=== PATIENT | female | born 1950 | race Two or more races ===

== ENCOUNTER 2017-05-23 10:49 | Emergency (ER) | payer MEDICARE, MEDICAID ==
[~2017-05-23] VITALS: Ht 134.6 cm; Wt 54.4 kg
[~2017-05-23 10:49] MED LIST: MEC25T PO; PHEN100C70 PO; PHENYTOIN SOD EXT; PREDNISONE 20 MG TABLET; SERT-275; SERT-275 PO; VALA500T33
[2017-05-23] MEDS ORDERED: SODIUM CHLORIDE 0.9% 1,000 ML IV ONE (12:15)
[2017-05-23] MEDS ORDERED: ONDANSETRON HCL 4 MG/2 ML VIAL IV ONE (12:15)
[2017-05-23 12:39] LABS: Basophils # (auto) 0 uL; Basophils % (auto) 0.3 % (0.0-2.0); Eosinophils # (auto) 0 uL; Eosinophils % (auto) 0.4 % (0.0-7.0); Hematocrit 36.9 % (36.0-46.0); Lymphocytes % (auto) 15.9 % (10.0-50.0); Mean Corpuscular Hgb Conc. 32.6 g/dL (32.0-36.0); Mean Corpuscular Volume 79.5 fL (80.0-100.0); Mean Platelet Volume 7.3 fL (6.9-10.8); Monocytes # (auto) 0.4 uL; Monocytes % (auto) 6.2 % (0.0-12.0); Neutrophils # (auto) 4.8 uL; Neutrophils % (auto) 77.2 % (37.0-80.0); Platelet Count (auto) 281 10^3/uL (140-450); Red Cell Distribution Width 15.6 % (11.8-14.3); White Blood Cell 6.2 10^3/uL (4.4-10.8)
[2017-05-23 13:02] LABS: Albumin 3.7 g/dL (3.4-5.0); Anion Gap 7 (5-15); Blood Urea Nitrogen 10 mg/dL (7-18); Calcium 8.5 mg/dL (8.5-10.1); Carbon Dioxide 26 mmol/L (21-32); Chloride 97 mmol/L (98-107); GFR African American 158 mL/min; GFR Non-African American 130 mL/min; Glucose 109 mg/dL (74-106); Potassium 3.6 mmol/L (3.5-5.1); Sodium 130 mmol/L (136-145)
[2017-05-23 13:07] LABS: Alkaline Phosphatase 138 U/L (45-117); Aspartate Aminotransferase 15 U/L (15-37); Bilirubin, Total 0.2 mg/dL (0.2-1.0); Total Protein 8.2 g/dL (6.4-8.2)
[2017-05-23 14:13] LABS: Urine Bilirubin Negative (Negative); Urine Blood Negative /uL (Negative); Urine Color Yellow (Yellow); Urine Glucose Normal (Normal); Urine Ketone 1+ (Negative); Urine Nitrite Negative (Negative); Urine RBC 1 /hpf (0 - 4); Urine Urobilinogen Normal (Negative)
[2017-05-23 14:32] VITALS: BP 128/75
== END 2017-05-23 14:57 | disposition home or self-care (01) ==
LOC: ER 10:49
DX: R11.10 Vomiting, unspecified (principal); Z83.3 Family history of diabetes mellitus
CPT/HCPCS: 36415; 74176; 80053; 81001; 84484; 85025; 93005; 96361; 96374; 99285; J2405; J7030

== ENCOUNTER 2017-08-05 15:34 | Inpatient (IN) | payer MEDICARE, MEDICAID ==
[~2017-08-05] VITALS: Ht 152.4 cm; Wt 55.9 kg
[2017-08-06 02:45] LABS: Urine Bacteria NONE SEEN /hpf (None Seen); Urine Blood Negative /uL (Negative); Urine Specific Gravity 1.013 (1.001-1.035); Urine WBC 1 /hpf (0 - 5)
[2017-08-06 03:15] LABS: BUN/Creatinine Ratio 18.2; Calcium 9.2 mg/dL (8.5-10.1); Potassium 4.4 mmol/L (3.5-5.1)
[2017-08-06 03:18] LABS: Bilirubin, Total 0.3 mg/dL (0.2-1.0)
[2017-08-06 03:27] LABS: Eosinophils # (auto) 0 uL; Hemoglobin 11.7 g/dL (12.2-16.2); Monocytes # (auto) 0.6 uL; Neutrophils # (auto) 3.8 uL
[2017-08-06 03:29] LABS: Basophils # (auto) 0 uL; Basophils % (auto) 0.4 % (0.0-2.0); Eosinophils % (auto) 0.3 % (0.0-7.0); Hematocrit 34.9 % (36.0-46.0); Lymphocytes # (auto) 1.5 uL; Lymphocytes % (auto) 25.8 % (10.0-50.0); Mean Corpuscular Hemoglobin 26.4 pg (28.0-32.0); Mean Corpuscular Hgb Conc. 33.6 g/dL (32.0-36.0); Mean Corpuscular Volume 78.6 fL (80.0-100.0); Neutrophils % (auto) 63.5 % (37.0-80.0); Nucleated Red Blood Cells % 0.3 %; Platelet Count (auto) 277 10^3/uL (140-450); Red Blood Cells 4.43 10^6/uL (4.0-5.20); Red Cell Distribution Width 16.1 % (11.8-14.3)
[2017-08-06] MEDS ORDERED: MAGNESIUM CITRATE SOLUTION 300 ML BTL PO ONE (04:00)
[2017-08-06] MEDS ORDERED: MORPHINE SULFATE 4 MG/ML SYR/VIAL IV PRN (06:15)
[2017-08-06] MEDS ORDERED: NITROGLYCERIN 0.4 MG SL TAB SL PRN (06:15)
[2017-08-06] MEDS ORDERED: HYDROcodone-ACET 5/325MG TAB PO PRN (06:45)
[2017-08-06] MEDS ORDERED: ONDANSETRON HCL 4 MG/2 ML VIAL IV PRN (06:45)
[2017-08-06] MEDS ORDERED: LORazepam 2MG/ML-1ML VIAL IV PRN (06:45)
[2017-08-06] MEDS ORDERED: ACETAMINOPHEN 500 MG TAB PO PRN (06:45)
[2017-08-06 08:15] LABS: BUN/Creatinine Ratio 13.5; Calcium 9.6 mg/dL (8.5-10.1); Potassium 4.4 mmol/L (3.5-5.1)
[2017-08-06] MEDS: LEVOTHYROXINE SODIUM 50 MCG TAB PO SCH (08:35)
[2017-08-06] MEDS: LACTULOSE 20Gm/30ML SOLN PO SCH (09:57)
[2017-08-06] MEDS: DOCUSATE SOD 100 MG CAP PO SCH ×2 (09:57→22:38)
[2017-08-06] MEDS: PHENYTOIN SODIUM 100 MG CAP PO SCH ×2 (09:57→22:38)
[2017-08-06] MEDS: SODIUM CHLORIDE 0.9% 1,000 ML IV SCH (17:13)
[2017-08-06 22:00] VITALS: BP 103/67
[2017-08-07 05:00] VITALS: BP 107/61
[2017-08-07 05:38] LABS: Basophils # (auto) 0 uL; Eosinophils # (auto) 0 uL; Eosinophils % (auto) 0.4 % (0.0-7.0); Hemoglobin 11.4 g/dL (12.2-16.2); Monocytes # (auto) 0.6 uL
[2017-08-07 05:41] LABS: Basophils % (auto) 0.4 % (0.0-2.0); Hematocrit 33.4 % (36.0-46.0); Lymphocytes # (auto) 1.1 uL; Lymphocytes % (auto) 24.7 % (10.0-50.0); Mean Corpuscular Hgb Conc. 34.1 g/dL (32.0-36.0); Mean Corpuscular Volume 79.2 fL (80.0-100.0); Monocytes % (auto) 13.7 % (0.0-12.0); Neutrophils # (auto) 2.7 uL; Neutrophils % (auto) 60.8 % (37.0-80.0); Nucleated Red Blood Cells % 0.5 %; Platelet Count (auto) 247 10^3/uL (140-450); Red Blood Cells 4.22 10^6/uL (4.0-5.20); Red Cell Distribution Width 16.1 % (11.8-14.3); White Blood Cell 4.4 10^3/uL (4.4-10.8)
[2017-08-07 05:57] LABS: Calcium 8.7 mg/dL (8.5-10.1); Magnesium 2.6 mg/dL (1.6-2.6); Potassium 3.9 mmol/L (3.5-5.1)
[2017-08-07] MEDS: LEVOTHYROXINE SODIUM 50 MCG TAB PO SCH (06:07)
[2017-08-07] MEDS: SODIUM CHLORIDE 0.9% 1,000 ML IV SCH (06:08)
[2017-08-07] MEDS ORDERED: LEVO50TA7 PO (07:45)
[2017-08-07] MEDS ORDERED: ESLI1TAB4 PO (07:45)
[2017-08-07] MEDS ORDERED: CHOL100083 OR (07:45)
[2017-08-07 09:00] VITALS: BP 117/60
[2017-08-07] MEDS: DOCUSATE SOD 100 MG CAP PO SCH (10:00)
[2017-08-07] MEDS: LACTULOSE 20Gm/30ML SOLN PO SCH (10:00)
[2017-08-07] MEDS: PHENYTOIN SODIUM 100 MG CAP PO SCH (10:26)
[2017-08-07] MEDS ORDERED: DOCU-94 PO (11:01)
[2017-08-07 13:37] VITALS: BP 117/60
[2017-08-07 13:55] VITALS: BP 117/60
== END 2017-08-07 16:30 | disposition home or self-care (01) | DRG 254 ==
LOC: ER 15:35 → TELE 15:36 → TELE-CENTR 08-06 18:38 → CENTRAL 08-07 05:21
PROVIDERS: ADMIT Nurse Practitioner Family; ATTEND Internal Medicine
DX: K59.00 Constipation, unspecified (principal); E87.1 Hypo-osmolality and hyponatremia; E03.9 Hypothyroidism, unspecified; G40.909 Epilepsy, unspecified, not intractable, without status epilepticus; M19.90 Unspecified osteoarthritis, unspecified site; I73.9 Peripheral vascular disease, unspecified; K62.3 Rectal prolapse; Z83.3 Family history of diabetes mellitus
CPT/HCPCS: 36415; 70450; 71046; 80048; 80053; 81001; 83735; 84443; 84484; 85025; 87086; 93005; 96360; 97163

== ENCOUNTER 2017-10-20 18:07 | Emergency (ER) | payer MEDICARE, MEDICAID ==
[~2017-10-20] VITALS: Ht 147.3 cm; Wt 54.4 kg
[~2017-10-20 18:07] MED LIST changes: +DOCU-94 PO; +LEVO50TA7 PO; -MEC25T PO; +PHE100C PO; -PHEN100C70 PO; -PHENYTOIN SOD EXT; -PREDNISONE 20 MG TABLET; -SERT-275; -SERT-275 PO; -VALA500T33
[2017-10-20 19:17] LABS: Basophils # (auto) 0 uL; Basophils % (auto) 0.3 % (0.0-2.0); Eosinophils # (auto) 0.1 uL; Hemoglobin 12.1 g/dL (12.2-16.2); Lymphocytes # (auto) 2.2 uL; Lymphocytes % (auto) 36.6 % (10.0-50.0); Mean Corpuscular Hemoglobin 27.1 pg (28.0-32.0); Mean Corpuscular Hgb Conc. 32.8 g/dL (32.0-36.0); Mean Corpuscular Volume 82.8 fL (80.0-100.0); Monocytes # (auto) 0.5 uL; Monocytes % (auto) 8.1 % (0.0-12.0); Neutrophils # (auto) 3.2 uL; Nucleated Red Blood Cells % 0.1 %; Platelet Count (auto) 262 10^3/uL (140-450); Red Blood Cells 4.47 10^6/uL (4.0-5.20); Red Cell Distribution Width 17.1 % (11.8-14.3); White Blood Cell 5.9 10^3/uL (4.4-10.8)
[2017-10-20 19:37] LABS: Alanine Aminotransferase 21 U/L (13-56); Albumin 3.7 g/dL (3.4-5.0); Alkaline Phosphatase 161 U/L (45-117); Anion Gap 8 (5-15); Aspartate Aminotransferase 15 U/L (15-37); BUN/Creatinine Ratio 23.8; Bilirubin, Total < 0.1 mg/dL (0.2-1.0); Blood Urea Nitrogen 15 mg/dL (7-18); Calcium 8.9 mg/dL (8.5-10.1); Carbon Dioxide 27 mmol/L (21-32); Chloride 106 mmol/L (98-107); GFR African American 121 mL/min; GFR Non-African American 100 mL/min; Glucose 87 mg/dL (74-106); Magnesium 2.3 mg/dL (1.6-2.6); Potassium 4.2 mmol/L (3.5-5.1); Sodium 141 mmol/L (136-145); Total Protein 8.2 g/dL (6.4-8.2)
[2017-10-20 20:35] VITALS: BP 148/77
== END 2017-10-20 22:42 | disposition home or self-care (01) ==
LOC: EDBD → ER 18:07
DX: R07.89 Other chest pain (principal); R51 Headache; Z86.718 Personal history of other venous thrombosis and embolism
CPT/HCPCS: 36415; 70450; 71046; 80053; 83735; 84484; 85025; 85379; 93005

== ENCOUNTER 2017-11-01 15:20 | Emergency (ER) | payer MEDICARE, MEDICAID ==
[~2017-11-01] VITALS: Ht 154.9 cm; Wt 49.4 kg
[2017-11-01 17:10] VITALS: BP 121/51
== END 2017-11-01 17:51 | disposition home or self-care (01) ==
LOC: ER 15:20
DX: J20.9 Acute bronchitis, unspecified (principal); F17.210 Nicotine dependence, cigarettes, uncomplicated
CPT/HCPCS: 71046

== ENCOUNTER → 2020-02-28 | Outpatient (CLI) | payer MEDICARE, MEDICAID, BC ==
[~2020-02-28] MED LIST changes: -DOCU-94 PO; +LEV50T PO; +RIV20T PO; +RIVA20TA PO
== END | disposition home or self-care (01) ==
LOC: XY 16:15
PROVIDERS: ATTEND Student in an Organized Health Care Education/Training Program
DX: I73.9 Peripheral vascular disease, unspecified (principal); M79.605 Pain in left leg; M79.604 Pain in right leg
CPT/HCPCS: 93925

== ENCOUNTER → 2020-04-12 | Outpatient (CLI) | payer MEDICARE, MEDICAID, BC | END | disposition home or self-care (01) | LOC: XYW 10:31 | PROVIDERS: ATTEND Student in an Organized Health Care Education/Training Program | DX: I07.1 Rheumatic tricuspid insufficiency (principal); R07.9 Chest pain, unspecified | CPT/HCPCS: 93306 ==

== ENCOUNTER → 2021-03-14 | Emergency (ER) | payer MEDICARE, MEDICAID ==
[~2021-03-14] VITALS: Ht 147.3 cm; Wt 49.6 kg
[~2021-03-14] MED LIST changes: +CEPH-322 PO; +CEPHALEXIN 250 MG CAP PO SCH
[2021-03-15] LABS: Albumin 3.9 g/dL (3.4-5.0); Calcium 8.8 mg/dL (8.5-10.1); Potassium 4.5 mmol/L (3.5-5.1)
[2021-03-15 00:02] LABS: BUN/Creatinine Ratio 30.6
[2021-03-15 00:04] LABS: Bilirubin, Total 0.3 mg/dL (0.2-1.0); Total Protein 8.4 g/dL (6.4-8.2)
[2021-03-15 00:55] LABS: Basophils # (auto) 0 10 ^3/uL (0-0.2); Basophils % (auto) 0.2 % (0.0-2.0); Eosinophils # (auto) 0 10 ^3/uL (0-0.8); Hematocrit 36.5 % (36.0-46.0); Hemoglobin 12.4 g/dL (12.2-16.2); Lymphocytes # (auto) 0.7 10 ^3/uL (0.4-5.4); Lymphocytes % (auto) 13.7 % (10.0-50.0); Mean Corpuscular Hemoglobin 29.6 pg (28.0-32.0); Mean Corpuscular Hgb Conc. 34.1 g/dL (32.0-36.0); Mean Corpuscular Volume 86.8 fL (80.0-100.0); Monocytes # (auto) 0.2 10 ^3/uL (0-1.3); Monocytes % (auto) 4.6 % (0.0-12.0); Neutrophils # (auto) 4.3 10 ^3/uL (1.6-8.6); Neutrophils % (auto) 81.5 % (37.0-80.0); Red Cell Distribution Width 14.9 % (11.8-14.3); White Blood Cell 5.3 10^3/uL (4.4-10.8)
[2021-03-15 01:35] LABS: Urine Bacteria NONE SEEN /hpf (None Seen); Urine Blood 1+ /uL (Negative); Urine Mucus FEW (None Seen); Urine Specific Gravity 1.026 (1.001-1.035); Urine WBC 3 /hpf (0 - 5)
[2021-03-15 06:13] VITALS: BP 114/63
== END | disposition home or self-care (01) ==
LOC: ER 21:29
DX: N39.0 Urinary tract infection, site not specified (principal); I10 Essential (primary) hypertension
CPT/HCPCS: 36415; 80053; 81001; 83690; 85007; 85025; 85027

== ENCOUNTER 2021-06-26 11:19 | Emergency (ER) | payer MEDICARE, MEDICAID ==
[~2021-06-26] VITALS: Ht 149.9 cm; Wt 60.1 kg
[~2021-06-26 11:19] MED LIST changes: -CEPHALEXIN 250 MG CAP PO SCH
[2021-06-26] MEDS ORDERED: AZIT1POW PO (16:25)
[2021-06-26] MEDS ORDERED: METH4PAK PO (16:25)
[2021-06-26 17:45] VITALS: BP 136/70
== END 2021-06-26 17:20 | disposition home or self-care (01) ==
LOC: ER 11:19
DX: U07.1 COVID-19 (principal); J12.82 Pneumonia due to coronavirus disease 2019; I10 Essential (primary) hypertension; Z79.2 Long term (current) use of antibiotics; Z79.899 Other long term (current) drug therapy
CPT/HCPCS: 36415; 71046; 87426

== ENCOUNTER 2021-08-05 15:18 | Emergency (ER) | payer MEDICARE, MEDICAID ==
[~2021-08-05] VITALS: Ht 149.9 cm; Wt 59.0 kg
[~2021-08-05 15:18] MED LIST changes: +AZIT1POW PO; +METH4PAK PO
[2021-08-05] MEDS ORDERED: SODIUM CHLORIDE 0.9% 1,000 ML IV ONE (16:00)
[2021-08-05 16:29] LABS: Basophils # (auto) 0.1 10 ^3/uL (0-0.2); Basophils % (auto) 1.3 % (0.0-2.0); Eosinophils # (auto) 0.1 10 ^3/uL (0-0.8); Eosinophils % (auto) 1.2 % (0.0-7.0); Hematocrit 35.8 % (36.0-46.0); Hemoglobin 12.2 g/dL (12.2-16.2); Lymphocytes % (auto) 47.2 % (10.0-50.0); Mean Corpuscular Hemoglobin 29.1 pg (28.0-32.0); Mean Corpuscular Hgb Conc. 34.2 g/dL (32.0-36.0); Mean Corpuscular Volume 85.2 fL (80.0-100.0); Monocytes # (auto) 0.4 10 ^3/uL (0-1.3); Monocytes % (auto) 10.2 % (0.0-12.0); Neutrophils # (auto) 1.7 10 ^3/uL (1.6-8.6); Neutrophils % (auto) 40.1 % (37.0-80.0); Nucleated Red Blood Cells % 0.5 %; Red Cell Distribution Width 15.2 % (11.8-14.3); White Blood Cell 4.2 10^3/uL (4.4-10.8)
[2021-08-05 16:44] LABS: INR 1.1 (0.9-1.15)
[2021-08-05 16:47] LABS: Albumin 3.8 g/dL (3.4-5.0); BUN/Creatinine Ratio 25.8; Calcium 8.7 mg/dL (8.5-10.1); Magnesium 2.6 mg/dL (1.6-2.6); Potassium 4.1 mmol/L (3.5-5.1)
[2021-08-05 16:50] LABS: Bilirubin, Total 0.2 mg/dL (0.2-1.0); Total Protein 7.9 g/dL (6.4-8.2)
[2021-08-05 17:46] LABS: Urine Bacteria NONE SEEN /hpf (None Seen); Urine Blood TRACE /uL (Negative); Urine Mucus FEW (None Seen); Urine Specific Gravity 1.024 (1.001-1.035); Urine WBC 2 /hpf (0 - 5)
[2021-08-05 18:00] VITALS: BP 128/70
== END 2021-08-05 18:31 | disposition home or self-care (01) ==
LOC: ER 15:18
DX: R06.02 Shortness of breath (principal); N39.0 Urinary tract infection, site not specified; R42 Dizziness and giddiness; M13.0 Polyarthritis, unspecified; I10 Essential (primary) hypertension; Z87.01 Personal history of pneumonia (recurrent)
CPT/HCPCS: 36415; 71046; 80053; 80185; 81001; 83735; 84443; 85025; 85610; 85730; 93005; 96360; 99285; J7030

== ENCOUNTER 2022-01-16 17:31 | Emergency (ER) | payer MEDICARE, MEDICAID ==
[~2022-01-16] VITALS: Ht 149.9 cm; Wt 57.0 kg
[2022-01-16 20:36] VITALS: BP 156/78
[2022-01-17] MEDS ORDERED: MELO7.5T9 PO (09:26)
[2022-01-17] MEDS ORDERED: KETO2CRE4 TOP (09:26)
== END 2022-01-16 21:24 | disposition left against medical advice (07) ==
LOC: ER 17:31
DX: M79.662 Pain in left lower leg (principal); M79.661 Pain in right lower leg; Z53.21 Procedure and treatment not carried out due to patient leaving prior to being seen by health care provider

== ENCOUNTER 2022-01-17 07:01 | Emergency (ER) | payer MEDICARE, MEDICAID ==
[~2022-01-17] VITALS: Ht 152.4 cm; Wt 51.3 kg
[2022-01-17 07:26] VITALS: BP 127/89
[2022-01-17] MEDS ORDERED: MELO7.5T9 PO (09:26)
[2022-01-17] MEDS ORDERED: KETO2CRE4 TOP (09:26)
== END 2022-01-17 09:38 | disposition home or self-care (01) ==
LOC: ER 07:01
DX: B35.3 Tinea pedis (principal); M23.91 Unspecified internal derangement of right knee; I10 Essential (primary) hypertension; E03.9 Hypothyroidism, unspecified; Z79.899 Other long term (current) drug therapy; Z79.2 Long term (current) use of antibiotics
CPT/HCPCS: 73562

== ENCOUNTER 2022-05-07 13:41 | Inpatient (IN) | payer MEDICARE, MEDICAID ==
[~2022-05-07] VITALS: Ht 121.9 cm; Wt 51.8 kg
[~2022-05-07 13:41] MED LIST changes: +KETO2CRE4 TOP; +MELO7.5T9 PO
[2022-05-07 15:45] LABS: Basophils # (auto) 0 10 ^3/uL (0-0.2); Basophils % (auto) 0.4 % (0.0-2.0); Eosinophils # (auto) 0 10 ^3/uL (0-0.8); Hematocrit 38.3 % (36.0-46.0); Hemoglobin 12.8 g/dL (12.2-16.2); Lymphocytes # (auto) 1.8 10 ^3/uL (0.4-5.4); Lymphocytes % (auto) 38.7 % (10.0-50.0); Mean Corpuscular Hemoglobin 28.6 pg (28.0-32.0); Mean Corpuscular Hgb Conc. 33.4 g/dL (32.0-36.0); Mean Corpuscular Volume 85.7 fL (80.0-100.0); Monocytes # (auto) 0.5 10 ^3/uL (0-1.3); Monocytes % (auto) 10.3 % (0.0-12.0); Neutrophils # (auto) 2.3 10 ^3/uL (1.6-8.6); Neutrophils % (auto) 49.6 % (37.0-80.0); Nucleated Red Blood Cells % 0.2 %; Red Blood Cells 4.47 10^6/uL (4.0-5.20); Red Cell Distribution Width 14.5 % (11.8-14.3); White Blood Cell 4.7 10^3/uL (4.4-10.8)
[2022-05-07 16:06] LABS: BUN/Creatinine Ratio 23.1; Calcium 9.3 mg/dL (8.5-10.1); Magnesium 2.2 mg/dL (1.6-2.6); Potassium 3.8 mmol/L (3.5-5.1)
[2022-05-07 16:09] LABS: Bilirubin, Total 0.2 mg/dL (0.2-1.0)
[2022-05-07] MEDS ORDERED: NITROGLYCERIN 0.4 MG SL TAB SL PRN (21:45)
[2022-05-07] MEDS ORDERED: MORPHINE SULFATE INJ 2 MG/ml SYRG IV PRN (21:45)
[2022-05-07] MEDS ORDERED: PANTOPRAZOLE 40 MG TAB PO ONE (21:45)
[2022-05-07] MEDS ORDERED: SODIUM CHLORIDE 0.9% 1,000 ML IV SCH (21:45)
[2022-05-07 22:06] LABS: Cholesterol 203 mg/dL (< 200)
[2022-05-07 22:11] LABS: HDL Cholesterol 90 mg/dL (40-59); LDL Cholesterol 104 mg/dL (< 100); Triglycerides 72 mg/dL (< 150)
[2022-05-08 03:52] LABS: Basophils # (auto) 0 10 ^3/uL (0-0.2); Basophils % (auto) 0.4 % (0.0-2.0); Eosinophils # (auto) 0.1 10 ^3/uL (0-0.8); Eosinophils % (auto) 1.7 % (0.0-7.0); Hemoglobin 12.2 g/dL (12.2-16.2); Lymphocytes # (auto) 1.8 10 ^3/uL (0.4-5.4); Lymphocytes % (auto) 41.4 % (10.0-50.0); Mean Corpuscular Hemoglobin 28.4 pg (28.0-32.0); Mean Corpuscular Volume 86.2 fL (80.0-100.0); Monocytes # (auto) 0.4 10 ^3/uL (0-1.3); Monocytes % (auto) 9.9 % (0.0-12.0); Neutrophils % (auto) 46.6 % (37.0-80.0); Red Blood Cells 4.29 10^6/uL (4.0-5.20); Red Cell Distribution Width 14.7 % (11.8-14.3); White Blood Cell 4.4 10^3/uL (4.4-10.8)
[2022-05-08 04:12] LABS: Albumin 3.6 g/dL (3.4-5.0); Calcium 9.2 mg/dL (8.5-10.1)
[2022-05-08 04:15] LABS: Bilirubin, Total 0.3 mg/dL (0.2-1.0)
[2022-05-08] MEDS ORDERED: ENOXAPARIN SOD 40 MG/0.4 ML SYRINGE SC SCH (10:00)
[2022-05-08] MEDS ORDERED: PANTOPRAZOLE 40 MG TAB PO SCH (10:00)
[2022-05-08] MEDS ORDERED: ATOR10TA52 PO (14:19)
[2022-05-08 16:51] LABS: Urine Specific Gravity 1.009 (1.001-1.035)
[2022-05-08 16:52] LABS: Urine Blood Negative /uL (Negative)
[2022-05-08 17:00] VITALS: BP 133/52
[2022-05-08 20:00] VITALS: BP 120/56
[2022-05-08 22:00] VITALS: BP 120/56
[2022-05-08] MEDS ORDERED: METOPROLOL TARTRATE 25 MG TAB PO SCH (22:00)
[2022-05-08] MEDS: ACETAMINOPHEN 325 MG TAB PO PRN (22:15)
[2022-05-09 05:22] VITALS: BP 110/38
[2022-05-09] MEDS: LEVOTHYROXINE SODIUM 50 MCG TAB PO SCH ×2 (06:24→09:27)
[2022-05-09 08:05] VITALS: BP 120/56
[2022-05-09 09:01] VITALS: BP 123/57
[2022-05-09] MEDS: PHENYTOIN SODIUM 100 MG CAP PO SCH ×2 (12:43→21:58)
[2022-05-09] MEDS: METOPROLOL TARTRATE 25 MG TAB PO SCH ×2 (12:47→22:00)
[2022-05-09 13:00] VITALS: BP 122/61
[2022-05-09 17:00] VITALS: BP 110/58
[2022-05-09] MEDS: RIVAROXABAN 20 MG TAB PO SCH (17:13)
[2022-05-09 22:00] VITALS: BP 103/52
[2022-05-09] MEDS: ATORVASTATIN 20 MG TAB PO SCH (22:00)
[2022-05-10 05:29] VITALS: BP 105/46
[2022-05-10] MEDS ORDERED: ADENOSINE 44 MG in GIVE UN-DILUTED 0 ML IV ONE (07:45)
[2022-05-10 08:00] VITALS: BP 116/55
[2022-05-10] MEDS: PHENYTOIN SODIUM 100 MG CAP PO SCH ×2 (09:39→21:40)
[2022-05-10] MEDS: METOPROLOL TARTRATE 25 MG TAB PO SCH ×2 (09:40→21:44)
[2022-05-10] MEDS: ACETAMINOPHEN 325 MG TAB PO PRN (12:19)
[2022-05-10 13:00] VITALS: BP 95/48
[2022-05-10 17:00] VITALS: BP 96/43
[2022-05-10] MEDS: RIVAROXABAN 20 MG TAB PO SCH (17:40)
[2022-05-10] MEDS: ATORVASTATIN 20 MG TAB PO SCH (21:39)
[2022-05-10 22:00] VITALS: BP_SYST 100; BP_SYST 112; BP_DIAS 48; BP_DIAS 74
[2022-05-11 05:00] VITALS: BP 106/53
[2022-05-11] MEDS: LEVOTHYROXINE SODIUM 50 MCG TAB PO SCH (06:33)
[2022-05-11 08:00] VITALS: BP 114/55
[2022-05-11 09:00] VITALS: BP 114/55
[2022-05-11] MEDS: METOPROLOL TARTRATE 25 MG TAB PO SCH ×2 (10:33→22:32)
[2022-05-11] MEDS: PHENYTOIN SODIUM 100 MG CAP PO SCH ×2 (10:34→22:29)
[2022-05-11 13:00] VITALS: BP 121/61
[2022-05-11 17:00] VITALS: BP 115/59
[2022-05-11] MEDS: RIVAROXABAN 20 MG TAB PO SCH (18:09)
[2022-05-11 22:00] VITALS: BP 109/43
[2022-05-11] MEDS: ATORVASTATIN 20 MG TAB PO SCH (22:29)
[2022-05-12] MEDS: LEVOTHYROXINE SODIUM 50 MCG TAB PO SCH (06:43)
[2022-05-12 08:00] VITALS: BP 158/75
[2022-05-12] MEDS: METOPROLOL TARTRATE 25 MG TAB PO SCH ×2 (08:59→22:07)
[2022-05-12] MEDS: PHENYTOIN SODIUM 100 MG CAP PO SCH ×2 (08:59→22:06)
[2022-05-12 12:00] VITALS: BP 105/49
[2022-05-12 16:00] VITALS: BP 128/60
[2022-05-12] MEDS: RIVAROXABAN 20 MG TAB PO SCH (18:11)
[2022-05-12] MEDS ORDERED: LORazepam 2MG/ML-1ML VIAL IV PRN (20:00)
[2022-05-12 22:00] VITALS: BP 105/61
[2022-05-12] MEDS: ATORVASTATIN 20 MG TAB PO SCH (22:06)
[2022-05-13 05:00] VITALS: BP 121/47
[2022-05-13] MEDS: LEVOTHYROXINE SODIUM 50 MCG TAB PO SCH (06:45)
[2022-05-13] MEDS: PHENYTOIN SODIUM 100 MG CAP PO SCH ×2 (06:45→22:07)
[2022-05-13 07:58] VITALS: BP 107/62
[2022-05-13] MEDS: METOPROLOL TARTRATE 25 MG TAB PO SCH ×2 (08:55→22:08)
[2022-05-13 09:00] VITALS: BP 105/52
[2022-05-13 12:59] VITALS: BP 110/51
[2022-05-13] MEDS: ENOXAPARIN SOD 40 MG/0.4 ML SYRINGE SC SCH (15:58)
[2022-05-13 16:57] VITALS: BP 137/56
[2022-05-13 22:00] VITALS: BP 105/54
[2022-05-13] MEDS: ATORVASTATIN 20 MG TAB PO SCH (22:07)
[2022-05-14] VITALS (8 sets, daily range): BP systolic 97–128; BP diastolic 46–65
[2022-05-14 06:19] LABS: Basophils # (auto) 0 10 ^3/uL (0-0.2); Basophils % (auto) 0.4 % (0.0-2.0); Eosinophils # (auto) 0.1 10 ^3/uL (0-0.8); Eosinophils % (auto) 2.2 % (0.0-7.0); Hematocrit 36.8 % (36.0-46.0); Hemoglobin 12.2 g/dL (12.2-16.2); Lymphocytes # (auto) 1.6 10 ^3/uL (0.4-5.4); Lymphocytes % (auto) 43.3 % (10.0-50.0); Mean Corpuscular Hemoglobin 28.6 pg (28.0-32.0); Mean Corpuscular Hgb Conc. 33.1 g/dL (32.0-36.0); Mean Corpuscular Volume 86.3 fL (80.0-100.0); Monocytes # (auto) 0.4 10 ^3/uL (0-1.3); Monocytes % (auto) 10.4 % (0.0-12.0); Neutrophils # (auto) 1.6 10 ^3/uL (1.6-8.6); Neutrophils % (auto) 43.7 % (37.0-80.0); Nucleated Red Blood Cells % 0.1 %; Red Blood Cells 4.26 10^6/uL (4.0-5.20); Red Cell Distribution Width 14.6 % (11.8-14.3); White Blood Cell 3.7 10^3/uL (4.4-10.8)
[2022-05-14 06:30] LABS: INR 1.08 (0.9-1.15); Partial Thromboplastin Time 26.1 sec (24.6-33.4)
[2022-05-14 06:31] LABS: Potassium 4.6 mmol/L (3.5-5.1)
[2022-05-14 06:38] LABS: BUN/Creatinine Ratio 35.6
[2022-05-14] MEDS: PHENYTOIN SODIUM 100 MG CAP PO SCH ×2 (06:47→22:03)
[2022-05-14] MEDS: LEVOTHYROXINE SODIUM 50 MCG TAB PO SCH (06:47)
[2022-05-14] MEDS: METOPROLOL TARTRATE 25 MG TAB PO SCH ×2 (10:00→22:00)
[2022-05-14] MEDS: ENOXAPARIN SOD 40 MG/0.4 ML SYRINGE SC SCH (10:00)
[2022-05-14] MEDS ORDERED: HEPARIN SODIUM (PORCINE) 5000 UNITS/ML 1ML VIAL ONE (16:32)
[2022-05-14] MEDS ORDERED: ANGIOMAX 250 MG VIAL IV ONE (16:32)
[2022-05-14] MEDS ORDERED: VERAPAMIL 2.5MG/ML INJ 2ML VIAL IV ONE (16:33)
[2022-05-14] MEDS ORDERED: MIDAZOLAM HCL 2MG/2ML 2ml VIAL (1mg/ml) ONE (16:33)
[2022-05-14] MEDS ORDERED: fentaNYL CITRATE 100 MCG/2 ML VL ONE (16:33)
[2022-05-14] MEDS ORDERED: LIDOCAINE 2%HCL (LOCAL ANESTH.) INJ 10ml MDV ONE (16:34)
[2022-05-14] MEDS ORDERED: SODIUM CHL 0.9% 0 ML ONE (16:34)
[2022-05-14] MEDS ORDERED: IODIXANOL 320MG/ML 100ML BTL IV ONE (16:34)
[2022-05-14] MEDS: ATORVASTATIN 20 MG TAB PO SCH (22:03)
[2022-05-15 05:00] VITALS: BP 101/54
[2022-05-15] MEDS: LEVOTHYROXINE SODIUM 50 MCG TAB PO SCH (06:09)
[2022-05-15] MEDS: PHENYTOIN SODIUM 100 MG CAP PO SCH (06:09)
[2022-05-15 08:00] VITALS: BP 105/65
[2022-05-15 08:10] VITALS: BP 105/65
[2022-05-15] MEDS: ENOXAPARIN SOD 40 MG/0.4 ML SYRINGE SC SCH (10:00)
[2022-05-15] MEDS: METOPROLOL TARTRATE 25 MG TAB PO SCH (10:16)
[2022-05-15 12:00] VITALS: BP 107/56
[2022-05-15 13:32] VITALS: BP 107/56
== END 2022-05-15 14:37 | disposition home or self-care (01) | DRG 192 ==
LOC: ER 13:41 → TELE 21:36 → TELE-EAST 05-08 13:11
PROVIDERS: ADMIT Nurse Practitioner Family; ATTEND Nurse Practitioner Acute Care
PROC: 4A023N7 Measurement of Cardiac Sampling and Pressure, Left Heart, Percutaneous Approach (ICD-10-PCS; principal; 2022-05-14)
PROC: B211YZZ Fluoroscopy of Multiple Coronary Arteries using Other Contrast (ICD-10-PCS; 2022-05-14)
PROC: B215YZZ Fluoroscopy of Left Heart using Other Contrast (ICD-10-PCS; 2022-05-14)
DX: I47.1 Supraventricular tachycardia (principal); I11.0 Hypertensive heart disease with heart failure; I50.22 Chronic systolic (congestive) heart failure; E03.9 Hypothyroidism, unspecified; I49.3 Ventricular premature depolarization; E78.5 Hyperlipidemia, unspecified; G40.909 Epilepsy, unspecified, not intractable, without status epilepticus; M19.90 Unspecified osteoarthritis, unspecified site; M41.9 Scoliosis, unspecified; I25.10 Atherosclerotic heart disease of native coronary artery without angina pectoris; R73.03 Prediabetes; Z86.711 Personal history of pulmonary embolism; Z86.718 Personal history of other venous thrombosis and embolism; Z86.73 Personal history of transient ischemic attack (TIA), and cerebral infarction without residual deficits; Z79.01 Long term (current) use of anticoagulants; Z83.3 Family history of diabetes mellitus
CPT/HCPCS: 36415; 71045; 78452; 80048; 80053; 80061; 80185; 81003; 83036; 83735; 83880; 84443; 84484; 85025; 85379; 85610; 85730; 86850; 86900; 86901; 87426; 93005; 93017; 93306; 93458; 95819; 96360; 99152; G0378; J0153; J2001; J2250; Q9967

== ENCOUNTER 2022-07-27 21:39 | Inpatient (IN) | payer MEDICARE, MEDICAID ==
[~2022-07-27] VITALS: Ht 147.3 cm; Wt 52.8 kg
[~2022-07-27 21:39] MED LIST changes: +ATOR10TA52 PO; -AZIT1POW PO; -CEPH-322 PO; -KETO2CRE4 TOP; -LEV50T PO; -MELO7.5T9 PO; -METH4PAK PO; -RIV20T PO
[2022-07-27] MEDS ORDERED: MAGNESIUM SULFATE 1GM/100ML 100 ML IV ONE (22:00)
[2022-07-27 22:30] LABS: Basophils # (auto) 0 10 ^3/uL (0-0.2); Basophils % (auto) 0.5 % (0.0-2.0); Eosinophils # (auto) 0.1 10 ^3/uL (0-0.8); Eosinophils % (auto) 2.3 % (0.0-7.0); Hematocrit 40.5 % (36.0-46.0); Hemoglobin 13.6 g/dL (12.2-16.2); Lymphocytes # (auto) 2.6 10 ^3/uL (0.4-5.4); Lymphocytes % (auto) 42.2 % (10.0-50.0); Mean Corpuscular Hemoglobin 29.3 pg (28.0-32.0); Mean Corpuscular Hgb Conc. 33.6 g/dL (32.0-36.0); Mean Corpuscular Volume 87.3 fL (80.0-100.0); Monocytes # (auto) 0.6 10 ^3/uL (0-1.3); Monocytes % (auto) 9.9 % (0.0-12.0); Neutrophils # (auto) 2.8 10 ^3/uL (1.6-8.6); Neutrophils % (auto) 45.1 % (37.0-80.0); Nucleated Red Blood Cells % 0.3 %; Red Blood Cells 4.64 10^6/uL (4.0-5.20); Red Cell Distribution Width 15.5 % (11.8-14.3); White Blood Cell 6.2 10^3/uL (4.4-10.8)
[2022-07-27 22:38] LABS: Albumin 3.9 g/dL (3.4-5.0); Calcium 9.5 mg/dL (8.5-10.1); Magnesium 2.2 mg/dL (1.6-2.6); Potassium 3.6 mmol/L (3.5-5.1)
[2022-07-27 22:40] LABS: BUN/Creatinine Ratio 41.5
[2022-07-27 22:43] LABS: Bilirubin, Total 0.3 mg/dL (0.2-1.0); Total Protein 8.3 g/dL (6.4-8.2)
[2022-07-28] MEDS ORDERED: ENOXAPARIN SOD 60 MG/0.6 ML SYRINGE SC ONE (04:45)
[2022-07-28] MEDS ORDERED: NITROGLYCERIN 0.4 MG SL TAB SL PRN (05:15)
[2022-07-28] MEDS ORDERED: ACETAMINOPHEN 325 MG TAB PO PRN (05:15)
[2022-07-28] MEDS ORDERED: ONDANSETRON HCL 4 MG/2 ML VIAL IV PRN (05:15)
[2022-07-28] MEDS ORDERED: MORPHINE SULFATE INJ 2 MG/ml SYRG IV PRN ×2 (05:15)
[2022-07-28] MEDS ORDERED: DOCUSATE SOD 100 MG CAP PO PRN (05:15)
[2022-07-28] MEDS ORDERED: HYDROcodone-ACET 5/325MG TAB PO PRN (05:15)
[2022-07-28] MEDS ORDERED: PHENYTOIN SODIUM 100 MG CAP PO SCH (06:00)
[2022-07-28 06:06] LABS: Basophils # (auto) 0 10 ^3/uL (0-0.2); Basophils % (auto) 0.3 % (0.0-2.0); Eosinophils # (auto) 0.1 10 ^3/uL (0-0.8); Eosinophils % (auto) 2.1 % (0.0-7.0); Hematocrit 38.2 % (36.0-46.0); Hemoglobin 13.2 g/dL (12.2-16.2); Lymphocytes % (auto) 34.4 % (10.0-50.0); Mean Corpuscular Hemoglobin 30.2 pg (28.0-32.0); Mean Corpuscular Hgb Conc. 34.7 g/dL (32.0-36.0); Monocytes # (auto) 0.6 10 ^3/uL (0-1.3); Monocytes % (auto) 11.3 % (0.0-12.0); Neutrophils % (auto) 51.9 % (37.0-80.0); Nucleated Red Blood Cells % 0.2 %; Red Blood Cells 4.39 10^6/uL (4.0-5.20); White Blood Cell 5.8 10^3/uL (4.4-10.8)
[2022-07-28 06:18] LABS: Potassium 4.3 mmol/L (3.5-5.1)
[2022-07-28 06:26] LABS: Albumin 3.7 g/dL (3.4-5.0); Bilirubin, Total 0.2 mg/dL (0.2-1.0); Calcium 9.2 mg/dL (8.5-10.1); Total Protein 7.2 g/dL (6.4-8.2)
[2022-07-28 07:09] LABS: Urine Bacteria FEW /hpf (None Seen); Urine Blood Negative /uL (Negative); Urine Mucus FEW (None Seen); Urine Specific Gravity 1.007 (1.001-1.035); Urine WBC 3 /hpf (0 - 5)
[2022-07-28] MEDS ORDERED: LORazepam 2MG/ML-1ML VIAL IV PRN ×2 (07:15→07:45)
[2022-07-28] MEDS: SODIUM CHLOR 0.9% PF (SALINE LOCK) 10ML VIAL/SYR IV SCH ×3 (07:33→22:29)
[2022-07-28] MEDS: LEVOTHYROXINE SODIUM 50 MCG TAB PO SCH (07:33)
[2022-07-28] MEDS ORDERED: levETIRAcetam 500 MG/5ML INJ IV ONE (07:37)
[2022-07-28 08:58] LABS: INR 1.07 (0.9-1.15); Partial Thromboplastin Time 25.9 sec (24.6-33.4)
[2022-07-28] MEDS ORDERED: ENOXAPARIN SOD 40 MG/0.4 ML SYRINGE SC SCH (10:00)
[2022-07-28] MEDS ORDERED: FAMOTIDINE (10MG/ML) 2ML VL IV SCH (10:00)
[2022-07-28] MEDS ORDERED: ASPirin 81 mg TAB PO SCH (10:00)
[2022-07-28] MEDS: RIVAROXABAN 20 MG TAB PO SCH (19:03)
[2022-07-28] MEDS: SACUBITRIL-VALSARTAN 24mg/26mg TAB PO SCH (22:00)
[2022-07-28] MEDS: CARVEDILOL 3.125 MG TAB PO SCH (22:00)
[2022-07-28] MEDS: ATORVASTATIN 20 MG TAB PO SCH (22:37)
[2022-07-29] MEDS: SODIUM CHLOR 0.9% PF (SALINE LOCK) 10ML VIAL/SYR IV SCH ×3 (05:57→22:00)
[2022-07-29 06:45] LABS: Potassium 4.5 mmol/L (3.5-5.1)
[2022-07-29 06:51] LABS: Albumin 3.4 g/dL (3.4-5.0); Bilirubin, Total 0.2 mg/dL (0.2-1.0); Total Protein 6.8 g/dL (6.4-8.2)
[2022-07-29 06:52] LABS: Basophils # (auto) 0 10 ^3/uL (0-0.2); Basophils % (auto) 0.3 % (0.0-2.0); Eosinophils # (auto) 0.1 10 ^3/uL (0-0.8); Hematocrit 36.1 % (36.0-46.0); Hemoglobin 12.6 g/dL (12.2-16.2); Lymphocytes # (auto) 1.7 10 ^3/uL (0.4-5.4); Lymphocytes % (auto) 34.7 % (10.0-50.0); Mean Corpuscular Hemoglobin 30.3 pg (28.0-32.0); Mean Corpuscular Hgb Conc. 34.9 g/dL (32.0-36.0); Mean Corpuscular Volume 86.9 fL (80.0-100.0); Monocytes # (auto) 0.6 10 ^3/uL (0-1.3); Monocytes % (auto) 12.4 % (0.0-12.0); Neutrophils # (auto) 2.4 10 ^3/uL (1.6-8.6); Neutrophils % (auto) 49.6 % (37.0-80.0); Nucleated Red Blood Cells % 0.1 %; Red Blood Cells 4.15 10^6/uL (4.0-5.20); Red Cell Distribution Width 15.5 % (11.8-14.3); White Blood Cell 4.9 10^3/uL (4.4-10.8)
[2022-07-29] MEDS: CARVEDILOL 3.125 MG TAB PO SCH ×2 (10:00→23:26)
[2022-07-29] MEDS: SACUBITRIL-VALSARTAN 24mg/26mg TAB PO SCH ×2 (11:09→23:25)
[2022-07-29] MEDS: LEVOTHYROXINE SODIUM 50 MCG TAB PO SCH ×2 (12:56→15:22)
[2022-07-29 18:07] VITALS: BP 117/43
[2022-07-29] MEDS: RIVAROXABAN 20 MG TAB PO SCH (19:19)
[2022-07-29 20:00] VITALS: BP 116/59
[2022-07-29 22:00] VITALS: BP 116/59
[2022-07-29] MEDS: ATORVASTATIN 20 MG TAB PO SCH (23:25)
[2022-07-30 05:00] VITALS: BP 106/54
[2022-07-30] MEDS: LEVOTHYROXINE SODIUM 50 MCG TAB PO SCH (06:05)
[2022-07-30] MEDS: SODIUM CHLOR 0.9% PF (SALINE LOCK) 10ML VIAL/SYR IV SCH (06:06)
[2022-07-30 08:00] VITALS: BP 116/59
[2022-07-30] MEDS ORDERED: LEV100T PO (08:54)
[2022-07-30] MEDS ORDERED: LEVE500T32 PO (08:54)
[2022-07-30 09:00] VITALS: BP 108/53
[2022-07-30] MEDS: CARVEDILOL 3.125 MG TAB PO SCH (10:00)
[2022-07-30] MEDS: SACUBITRIL-VALSARTAN 24mg/26mg TAB PO SCH (10:00)
[2022-07-30 10:05] VITALS: BP 110/60
== END 2022-07-30 11:00 | disposition home or self-care (01) | DRG 812 ==
LOC: ER 21:39 → TELE 07-28 05:11 → TELE-CENTR 07-29 18:05
PROVIDERS: ADMIT Nurse Practitioner Family; ATTEND Family Medicine
DX: T42.0X1A Poisoning by hydantoin derivatives, accidental (unintentional), initial encounter (principal); I50.23 Acute on chronic systolic (congestive) heart failure; I11.0 Hypertensive heart disease with heart failure; G40.409 Other generalized epilepsy and epileptic syndromes, not intractable, without status epilepticus; E11.9 Type 2 diabetes mellitus without complications; E78.00 Pure hypercholesterolemia, unspecified; R07.89 Other chest pain; F41.9 Anxiety disorder, unspecified; Z20.822 Contact with and (suspected) exposure to COVID-19; F32.A Depression, unspecified; E03.9 Hypothyroidism, unspecified; Y92.89 Other specified places as the place of occurrence of the external cause; Z79.899 Other long term (current) drug therapy; Z83.3 Family history of diabetes mellitus; Z86.711 Personal history of pulmonary embolism; Z86.718 Personal history of other venous thrombosis and embolism; Z86.73 Personal history of transient ischemic attack (TIA), and cerebral infarction without residual deficits; Z91.14 Patient's other noncompliance with medication regimen
CPT/HCPCS: 36415; 71045; 80053; 80185; 81001; 83735; 83880; 84443; 84484; 85025; 85379; 85610; 85730; 87426; 87804; 93005; 95819; 96365; 99291; G0378; J3490; J7060

== ENCOUNTER 2025-03-06 14:12 | Inpatient (IN) | payer MEDICARE, MEDICAID ==
[~2025-03-06] VITALS: Ht 149.9 cm; Wt 55.2 kg
[~2025-03-06 14:12] MED LIST changes: +ALEN70TA74 PO; +LEVE500T3 PO; +LEVE500T40 PO; +LEVO-849 PO; +METO25TA93 PO; -PHE100C PO; +PHEN1CAP38 PO; +SACU1TAB PO
[2025-03-06 14:47] LABS: Hematocrit 36.3 % (36.0-46.0); Hemoglobin 12.2 g/dL (12.2-16.2); Mean Corpuscular Hemoglobin 28.2 pg (28.0-32.0); Mean Corpuscular Volume 83.8 fL (80.0-100.0); Nucleated Red Blood Cells % 0.2 %
[2025-03-06 14:59] LABS: Chloride 103 mmol/L (98-107); Potassium 4.1 mmol/L (3.5-5.1); Sodium 138 mmol/L (136-145)
[2025-03-06 15:00] LABS: Anion Gap 8 (5-15); Calcium 9.7 mg/dL (8.7-10.4); Carbon Dioxide 27 mmol/L (20-31)
--- NOTE | 2025-03-06 15:04 | ED.PDOC ---
History of Present Illness HPI Comments 75 y/o F, with PMHx of arthritis, seizures, thyroid disease, HLD, and HTN presents to the ED for CC of dosage error. Patient states, she accidently took x2 tablets of her Levothyroxine medication this morning (03/06/25). Patient reports, that she has been experiencing palpitations with associated chest press ure prior to unintentional overdose x3days. Patient denies shortness of breath, tremors, nausea, vomiting, or diarrhea. No other symptoms or modifying factors are present at this time. Chief Complaint: Abnormal LAB's Time Seen by MD: 14:55 Primary Care Provider: RAY Reviewed Notes: Nurses Notes, Medications, Allergies Allergies: Coded Allergies: NO KNOWN ALLERGIES (Unverified , 07/19/13) Home Meds Active Scripts Rivaroxaban (XARELTO) 20 Mg Tab, 1 TAB PO DAILY, #30 TAB 0 Refills Prov:LINDA VITALE 07/31/22 Levetiracetam (Keppra) 500 Mg Tab, 1 TAB PO BID, #180 TAB 3 Refills Prov:CLAY VILLAGOMEZ MD 07/30/22 Levothyroxine Sodium (SYNTHROID TABLET) 100 Mcg Tb, 1.5 TAB PO DAILY, #90 TAB 3 Refills Prov:CLAY VILLAGOMEZ MD 07/30/22 Reported Medications Atorvastatin Calcium (ATORVASTATIN CALCIUM) 10 Mg Tab, 1 TAB PO HS, TAB 05/08/22 Phenytoin Sodium (DILANTIN CAPSULE) 100 Mg Cp, 100 MG PO BID for 30 Days 05/20/19 Rivaroxaban (XARELTO) 20 Mg Tab, 1 TAB PO QPM, #30 TAB 11 Refills 08/13/18 Levothyroxine Sodium (Levothyroxine Sodium) 50 Mcg Tab, 50 MCG PO QAM for 30 Days, MCG 08/07/17 Information Source: Patient Mode of Arrival: Ambulatory Severity: Moderate Timing: Days Duration: Since onset Prehospital treatment: None Past Medical History PAST MEDICAL HISTORY: Arthritis, High Lipids, HTN, Seizures, Thyroid Surgical History: Denies all surgeries 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 TRANSFER WORKER History: Denies all DRY TRANSFER WORKER Hx Family History Family History: Reviewed,noncontributory to illness Social History Smoker: Non-Smoker Alcohol: Denies ETOH Use Drugs: Denies Drug Use Lives In: Assisted Care Constitutional: denies: chills, diaphoresis, fatigue, fever, malaise, sweats, weakness, others EENTM: denies: blurred vision, double vision, ear bleeding, ear discharge, ear drainage, ear pain, ear ringing, eye pain, eye redness, hearing loss, mouth pain, mouth swelling, nasal discharge, nose bleeding, nose congestion, nose pain, photophobia, tearing, throat pain, throat swelling, voice changes, others Respiratory: denies: cough, hemoptysis, orthopnea, SOB at rest, shortness of breath, SOB with excertion, stridor, wheezing, others Cardiovascular: reports: palpitations; denies: chest pain, dizzy spells, diaphoresis, Dyspnea on exertion, edema, irregular heart beat, left arm pain, lightheadedness, PND, syncope, others Gastrointestinal: denies: abdomen distended, abdominal pain, blood streaked bowels, constipated, diarrhea, dysphagia, difficulty swallowing, hematemesis, melena, nausea, poor appetite, poor fluid intake, rectal bleeding, rectal pain, vomiting, others Genitourinary: denies: abnormal vagina bleeding, burning, dyspareunia, dysuria, flank pain, frequency, hematuria, incontinence, pain, , vagina discharge, urgency, others Neurological: denies: dizziness, fainting, headache, left sided numbness, left sided weakness, numbness, paresthesia, pre-existing deficit, right sided numbness, right sided weakness, seizure, speech problems, tingling, tremors, weakness, others Musculoskeletal: denies: back pain, gout, joint pain, joint swelling, muscle pain, muscle stiffness, neck pain, others Integumetry: denies: bruises, change in color, change in hair/nails, dryness, laceration, lesions, lumps, rash, wounds, others Allergic/Immunocompromised: denies: Difficulty Healing, Frequent Infections, Hives, Itching, others Hematologic/Lymphatic: denies: anemia, blood clots, easy bleeding, easy bruising, swollen glands, others Endocrine: denies: excessive hunger, excessive sweating, excessive thirst, excessive urination, flushing, intolerance to cold, intolerance to heat, unexplained weight gain, unexplained weight loss, others Psychiatric: denies: anxiety, bipolar disorder, depression, hopeless, panic disorder, schizophrenia, sleepless, suicidal, others All Other Systems: Reviewed and Negative Physical Exam General Appearance: Moderate Distress HEENT: Normal ENT Inspection, Pharynx Normal, TMs Normal Neck: Full Range of Motion, Non-Tender, Normal, Normal Inspection Respiratory: Chest Non-Tender, Lungs Clear, No Accessory Muscle Use, No Respiratory Distress, Normal Breath Sounds Cardiovascular: No Edema, No JVD, No Murmur, No Gallop, Normal Peripheral Pulses, Regular Rate/Rhythm Breast Exam: Deferred Gastrointestinal: No Organomegaly, Non Tender, No Pulsatile Mass, Normal Bowel Sounds, Soft Genitalia: Deferred Pelvic: Deferred Rectal: Deferred Extremities: No calf tenderness, Normal capillary refill, Normal inspection, Normal range of motion, Non-tender, No pedal edema Musculoskeletal : Apperance: Normal Neurologic: Alert, kennel worker II-XII nml as Tested, No Motor Deficits, Normal Affect, Normal Mood, No Sensory Deficits Cerebellar Function: Normal Reflexes: Normal Skin: Dry, Normal Color, Warm Peripheral Pulses: 3+ Radial (R), 3+ Radial (L) Lymphatic: No Adenopathy Was a procedure done? Was a procedure done?: No Differential Dx Considerations may include: hypothyroidism, drug toxicity X-Ray, Labs, Meds, VS Vital Signs Date Time Temp Pulse Resp B/P (MAP) Pulse Ox O2 Delivery O2 Flow Rate FiO2 03/06/25 14:13 97.8 85 16 153/90 99 97.8 Lab Test 03/06/25 14:37 Range/Units White Blood Count 4.8 4.4-10.8 10^3/uL Red Blood Count 4.33 4.0-5.20 10^6/uL Hemoglobin 12.2 12.2-16.2 g/dL Hematocrit 36.3 36.0-46.0 % Mean Corpuscular Volume 83.8 80.0-100.0 fL Mean Corpuscular Hemoglobin 28.2 28.0-32.0 pg Mean Corpuscular Hemoglobin Concent 33.7 32.0-36.0 g/dL Red Cell Distribution Width 14.7 H 11.8-14.3 % Platelet Count 213 140-450 10^3/uL Mean Platelet Volume 7.6 6.9-10.8 fL Neutrophils (%) (Auto) 50.5 37.0-80.0 % Lymphocytes (%) (Auto) 37.8 10.0-50.0 % Monocytes (%) (Auto) 10.5 0.0-12.0 % Eosinophils (%) (Auto) 0.8 0.0-7.0 % Basophils (%) (Auto) 0.4 0.0-2.0 % Neutrophils # (Auto) 2.4 1.6-8.6 10 ^3/uL Lymphocytes # (Auto) 1.8 0.4-5.4 10 ^3/uL Monocytes # (Auto) 0.5 0-1.3 10 ^3/uL Eosinophils # (Auto) 0 0-0.8 10 ^3/uL Basophils # (Auto) 0 0-0.2 10 ^3/uL Nucleated Red Blood Cells 0.2 % Sodium Level 138 136-145 mmol/L Potassium Level 4.1 3.5-5.1 mmol/L Chloride Level 103 98-107 mmol/L Carbon Dioxide Level 27 20-31 mmol/L Anion Gap 8 5-15 Blood Urea Nitrogen 12 9-23 mg/dL Creatinine 0.93 0.550-1.02 mg/dL Glomerular Filtration Rate Calc 64 >90 mL/min BUN/Creatinine Ratio 12.9 10.0-20.0 Serum Glucose 91 74-106 mg/dL Calcium Level 9.7 8.7-10.4 mg/dL Troponin I High Sensitivity < 3 L </=34 ng/L Patient alert. Vitals stable. Has been having chest discomfort. Blood pressure slightly elevated. Cardiac marker within normal limits. She did take excess tablets of thyroid medication. Was given clonidine. Explained to the patient. Continue monitoring. Time of 1ST Reevaluation: 15:25 Reevaluation 1ST: Unchanged Patient Education/Counseling: Diagnosis, Treatment Family Education/Counseling: No Family Present SEPSIS Sepsis Screen Date sepsis recognized/suspect: Mar 06, 2025 Time Sepsis recognized/suspect: 1413 Recent Procedure: No On Antibiotic Therapy: No Respiratory Rate >20: No Heart Rate >90: No Temp<36 C (96.8 F) or >38.3 C: No SBP <90 or MAP <65 mmHG: No New Acute Mental Status Change: No Is the patient on CPAP, BIPAP,: No Physician Orders Urinalysis (03/06/25 14:23) Vital Signs Date Time Temp Pulse Resp B/P (MAP) Pulse Ox O2 Delivery O2 Flow Rate FiO2 03/06/25 14:13 97.8 85 16 153/90 99 97.8 Laboratory Tests Test 03/06/25 14:37 White Blood Count 4.8 10^3/uL (4.4-10.8) Departure 1 Departure Time of Disposition: 15:59 Impression: Primary Impression: Chest pain of unknown etiology Additional Impression: Hypertensive urgency Disposition: ADMITTED INPATIENT Admit to: Med Surg Condition: Guarded Critical Care Note Critical Care Time?: No Stability Stability form required: No Heart Score Heart Score: Heart Score Response (Comments) Value History Slightly Suspicious 0 EKG Normal 0 Age >65 2 Risk Factors >3 or Hx ASHD 2 Troponin Normal limit 0 Total 4 I personally scribed for CARLY RAMIREZ MD ([email or web address]) on 03/06/25 at 15:04. Electronically submitted by Puja Brewer ([email or web address]). I personally scribed for CARLY RAMIREZ MD ([email or web address]) on 03/06/25 at 15:14. Electronically submitted by Puja Brewer [email or web address]). CARLY RAMIREZ MD Mar 06, 2025 15:04
[2025-03-06 15:05] LABS: BUN/Creatinine Ratio 12.9 (10.0-20.0); Blood Urea Nitrogen 12 mg/dL (9-23); Glucose 91 mg/dL (74-106)
[2025-03-06 21:25] LABS: Alanine Aminotransferase 12.0 U/L (7-40); Albumin 4.6 g/dL (3.2-4.8); Alkaline Phosphatase 74.0 U/L (46-116); Bilirubin, Direct 0.1 mg/dL (<0.3); Bilirubin, Total 0.5 mg/dL (0.2-1.0); Cholesterol 181.0 mg/dL (< 200); Magnesium 1.9 mg/dL (1.6-2.6); Total Protein 8.0 g/dL (5.7-8.2); Triglycerides 78.0 mg/dL (< 150)
[2025-03-06 21:34] LABS: INR 1.08 (0.9-1.15); Partial Thromboplastin Time 26.8 SEC (24.5-34.5); Prothrombin Time 11.4 sec (9.3-11.8)
[2025-03-06 21:48] LABS: HDL Cholesterol 76.0 mg/dL (40-59)
[2025-03-06 21:58] LABS: Lipase 36.0 U/L (12-53)
--- NOTE | 2025-03-06 22:43 | DVHHPRES ---
History of Present Illness Resident Creating Document: ANJUM ORTIZ RESIDENT History of Present Illness This is a 75-year-old female with past medical history of HFrEF with ejection fraction 40%, recurrent grand mal seizures on Keppra, DVT, PE, dyslipidemia, prediabetes, hypothyroidism, presented to the ER with chief complain of chest pain, headache, dyspnea and palpitations in functional class III. She is a poor historian. Patient endorsed taking 2 thyroxine pills yesterday, followed by chest pain, palpitation and tremors. She described chest pain as pressure-like, substernal, /10. She complained of associated palpitations and shortness of breaths. Shortness of breaths was prominent while doing yard work a month ago, now occurs with minimal effort. She also complained of headache, was not able to elaborate characteristic and onset time. Denies any other associated symptoms. PMHx: HFrEF with ejection fraction 40%, recurrent grand mal seizures on Keppra, DVT, PE, dyslipidemia, prediabetes, hypothyroidism PSHx: No significant surgical history Family history: Congestive heart failure in brother Social history: Denies smoking, alcohol, recreational drug use. Full code. 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 Patient has no new complaints. She is admitted for further assessment and management. Review of Systems Respiratory: Shortness of breath, SOB with excertion Cardiovascular: Chest Pain, Palpitations Gastrointestinal: Nausea Neurological: Other (Tremors) Allergies: Coded Allergies: NO KNOWN ALLERGIES (Unverified , 07/19/13) Exam Vital Signs Vital Signs Date Time Temp Pulse Resp B/P (MAP) Pulse Ox O2 Delivery O2 Flow Rate FiO2 03/06/25 14:13 97.8 85 16 153/90 99 97.8 Exam General: Patient alert and oriented in person, place and time. Patient following commands. HEENT: Normocephalic, atraumatic, moist mucous membranes Respiratory/pulmonary: Clear lungs bilaterally, vesicular murmurs present in almost all lung pavon, no associated crackles or wheezes. Cardiovascular: S1, S2, S4 heard. No murmurs heard Abdomen: Abdomen nondistended, there is no pain to palpation in any of the abd ominal quadrants, no palpable masses. Extremities: Grade 1 peripheral pitting edema present Peripheral Pulses: 3+ Radial (R). 3+ Radial (L). 3+ Dorsalis pedis (R). 3+ Dorsalis pedis(L) Skin: No rashes or pruritus, there is no sacral edema present at this time. Neurological: Intact cranial nerves with no focal neurologic deficits Labs/Xrays Labs Test 03/06/25 21:09 03/06/25 14:37 Range/Units Prothrombin Time 11.4 9.3-11.8 sec Prothrombin Time INR 1.08 0.9-1.15 Activated Partial Thromboplast Time 26.8 24.5-34.5 SEC White Blood Count 4.8 4.4-10.8 10^3/uL Red Blood Count 4.33 4.0-5.20 10^6/uL Hemoglobin 12.2 12.2-16.2 g/dL Hematocrit 36.3 36.0-46.0 % Mean Corpuscular Volume 83.8 80.0-100.0 fL Mean Corpuscular Hemoglobin 28.2 28.0-32.0 pg Mean Corpuscular Hemoglobin Concent 33.7 32.0-36.0 g/dL Red Cell Distribution Width 14.7 H 11.8-14.3 % Platelet Count 213 140-450 10^3/uL Mean Platelet Volume 7.6 6.9-10.8 fL Neutrophils (%) (Auto) 50.5 37.0-80.0 % Lymphocytes (%) (Auto) 37.8 10.0-50.0 % Monocytes (%) (Auto) 10.5 0.0-12.0 % Eosinophils (%) (Auto) 0.8 0.0-7.0 % Basophils (%) (Auto) 0.4 0.0-2.0 % Neutrophils # (Auto) 2.4 1.6-8.6 10 ^3/uL Lymphocytes # (Auto) 1.8 0.4-5.4 10 ^3/uL Monocytes # (Auto) 0.5 0-1.3 10 ^3/uL Eosinophils # (Auto) 0 0-0.8 10 ^3/uL Basophils # (Auto) 0 0-0.2 10 ^3/uL Nucleated Red Blood Cells 0.2 % Sodium Level 138 136-145 mmol/L Potassium Level 4.1 3.5-5.1 mmol/L Chloride Level 103 98-107 mmol/L Carbon Dioxide Level 27 20-31 mmol/L Anion Gap 8 5-15 Blood Urea Nitrogen 12 9-23 mg/dL Creatinine 0.93 0.550-1.02 mg/dL Glomerular Filtration Rate Calc 64 >90 mL/min BUN/Creatinine Ratio 12.9 10.0-20.0 Serum Glucose 91 74-106 mg/dL Hemoglobin A1c 5.8 H <5.7 % A1C Calcium Level 9.7 8.7-10.4 mg/dL Phosphorus Level 3.8 2.4-5.1 mg/dL Magnesium Level 1.9 1.6-2.6 mg/dL Total Bilirubin 0.5 0.2-1.0 mg/dL Direct Bilirubin 0.1 <0.3 mg/dL Aspartate Amino Transferase (AST) 23 13-40 U/L Alanine Aminotransferase (ALT) 12 7-40 U/L Alkaline Phosphatase 74 46-116 U/L Troponin I High Sensitivity < 3 L </=34 ng/L C-Reactive Protein High Sensitivity 0.08 <1.0 mg/dL Total Protein 8.0 5.7-8.2 g/dL Albumin 4.6 3.2-4.8 g/dL Triglycerides Level 78 < 150 mg/dL Cholesterol Level 181 < 200 mg/dL LDL Cholesterol 95 < 100 mg/dL HDL Cholesterol 76 H 40-59 mg/dL Lipase 36 12-53 U/L Thyroid Stimulating Hormone (TSH) 3.95 0.55-4.78 uIU/mL SEPSIS Sepsis Screen Date sepsis recognized/suspect: Mar 06, 2025 Time Sepsis recognized/suspect: 3 Recent Procedure: No On Antibiotic Therapy: No Respiratory Rate >20: No Heart Rate >90: No Temp<36 C (96.8 F) or >38.3 C: No SBP <90 or MAP <65 mmHG: No New Acute Mental Status Change: No Is the patient on CPAP, BIPAP,: No Physician Orders Drug Screen (03/06/25 20:42) Vitamin B12 (03/06/25 20:42) Vitamin D, 25-Hydroxy (03/06/25 20:42) Admit (03/06/25 22:32) Allergies (03/06/25 22:32) Code Status (03/06/25:32) Acetaminophen Tablet (Tylenol Tablet) (03/06/25 22:45) Ondansetron Hcl (Zofran) (03/06/25 22:45) Complete Blood Count (03/07/25 04:00) Comprehensive Metabolic Panel (03/07/25 04:00) Cardiac Diet-2gna,Lofat,Lochol (03/07/25 Breakfast) Echo 2d Mode Cardiac Dop (03/06/25:32) Condition: Serious (03/06/25:32) Morphine Sulfate Injection (03/06/25 22:45) Lovenox 40mg (03/06/25 22:45) Nitroglycerin Sublingual (Ntrostat Subli (03/06/25 22:45) Morphine Sulfate Injection (03/06/25 22:45) Oxygen By Nasal Cannula (03/06/25:32) Stat Ekg For Chest Pain (03/06/25:32) Notify Md Of Changes From Base (03/06/25:32) Brand Marketing Specialist For 24 Hours (03/06/25 22:32) Emergency Dysrhythmia Protocol (03/06/25:32) Rhythm Strips Once Every Shift (03/06/25 22:32) Aspirin Tablet (03/06/25 22:45) Aspirin Tablet (03/07/25 10:00) Atorvastatin (Lipitor) (03/06/25 22:45) Atorvastatin (Lipitor) (03/07/25 22:00) Levothyroxine Tablet (Synthroid Tablet) (03/07/25 06:00) Metoprolol Xl Succinate (Toprol Xl) (03/06/25 22:45) Metoprolol Xl Succinate (Toprol Xl) (03/07/25 10:00) Sacubitril-Valsartan (Entresto 24-26 Mg (03/07/25 10:00) Pantoprazole Tablet (Protonix Tablet) (03/06/25 22:45) Pantoprazole Tablet (Protonix Tablet) (03/07/25 06:00) Left Lower Extremity Ultrasoun (03/06/25 22:32) B-Type Natriuretic Peptide (03/06/25 22:32) Laboratory Tests Test 03/06/25 14:37 White Blood Count 4.8 10^3/uL (4.4-10.8) Assessment/Plan Assessment/Plan NSTEMI, likely type 2 Chronic systolic heart failure without exacerbation HFrEF with LVEF 40% with diastolic dysfunction Trending troponin, EKG; elevated troponins, EKG shows no acute changes Echo done in 01/2024 shows LVEF 40% with diastolic dysfunction CXR, Echo ordered Monitored on telemetry On GDMT Entresto, metoprolol. Poor follow up with lamp cleaner, evaluate for spironolactone, Jardiance Continue aspirin, atorvastatin 40 mg Suggest follow-up with Cardiology as outpatient. If deemed necessary during hospitalization, consult Cardiology (IE evidence of even more reduced ejection fraction or abnormal wall motility in new echocardiogram). Hypothyroidism TSH 3.95 Continue levothyroxine 50 mg daily Hyperlipidemia Continue atorvastatin Grand mal seizure, without breakthrough seizure Continue Keppra 500 mg b.i.d. Ruled out DVT Doppler lower extremity negative for DVT DIET: Cardiac DVT PROPHYLAXIS: Lovenox GI PROPHYLAXIS: Protonix CODE STATUS: Goals of care discussed with patient, nurses at bedside for more than 35 minutes. Full code DISPOSITION: Telemetry Patient's status and plan discussed with the patient. Case discussed with Dr. Aguilar Plan discussed with: Patient, Other (Nurses) My Orders Orders - ANJUM ORTIZ RESIDENT Procedure Category Date Status Time Drug Screen LAB 03/06/25 Logged 20:42 Vitamin B12 LAB 03/06/25 In Process 20:42 Vitamin D, 25-Hydroxy LAB 03/06/25 In Process 20:42 Admit ADMIT 03/06/25 Transmitted 22:32 Allergies NAT 03/06/25 Transmitted 22:32 Code Status CODE 03/06/25 Transmitted 22:32 Acetaminophen Tablet PHA 03/06/25 Transmitted (Tylenol Tablet) 22:45 Ondansetron Hcl PHA 03/06/25 Transmitted (Zofran) 22:45 Complete Blood Count LAB 03/07/25 Verified 04:00 Comprehensive LAB 03/07/25 Verified Metabolic Panel 04:00 Cardiac DIET 03/07/25 Transmitted Diet-2gna,Lofat,Lochol Breakfast Echo 2d Mode Cardiac US 03/06/25 Transmitted DOP 22:32 Condition: Serious NAT 03/06/25 Transmitted 22:32 Morphine Sulfate PHA 03/06/25 Transmitted Injection 22:45 Lovenox 40mg PHA 03/06/25 Transmitted 22:45 Nitroglycerin PHA 03/06/25 Transmitted Sublingual (Ntrostat 22:45 Morphine Sulfate PHA 03/06/25 Transmitted Injection 22:45 Oxygen By Nasal RT 03/06/25 Transmitted Cannula 22:32 Stat Ekg For Chest [facility] 03/06/25 Transmitted Pain 22:32 Notify Of Changes [facility] 03/06/25 Transmitted From Base 22:32 Brand Marketing Specialist For [facility] 03/06/25 Transmitted 24 Hours 22:32 Emergency Dysrhythmia [facility] 03/06/25 Transmitted Protocol 22:32 Rhythm Strips Once [facility] 03/06/25 Transmitted Every Shift 22:32 Aspirin Tablet [facility] 03/06/25 Transmitted 22:45 Aspirin Tablet [facility] 03/07/25 Transmitted 10:00 Atorvastatin (Lipitor) [facility] 03/06/25 Transmitted 22:45 Atorvastatin (Lipitor) [facility] 03/07/25 Transmitted 22:00 Levothyroxine Tablet [facility] 03/07/25 Transmitted (Synthroid Tablet) 06:00 Metoprolol Xl [facility] 03/06/25 Transmitted Succinate (Toprol Xl) 22:45 Metoprolol Xl [facility] 03/07/25 Transmitted Succinate (Toprol Xl) 10:00 Sacubitril-Valsartan [facility] 03/07/25 Transmitted (Entresto 24-26 Mg 10:00 Pantoprazole Tablet [facility] 03/06/25 Transmitted (Protonix Tablet) 22:45 Pantoprazole Tablet [facility] 03/07/25 Transmitted (Protonix Tablet) 06:00 Left Lower Extremity US 03/06/25 Transmitted Ultrasoun 22:32 B-Type Natriuretic LAB 03/06/25 Transmitted Peptide 22:32 Date of Service: Mar 06, 2025 Billing Provider: JANE CASTILLO MD Common Visit Codes: 26154-UKIIRAT INP/OBS CARE (HIGH) Secondary Visit Codes: 56484-[id number] CARE PLAN 30 MINUTES ANJUM ORTIZ RESIDENT Mar 06, 2025 22:43 MARILEE WANG RESIDENT Mar 07, 2025 05:26
[2025-03-06] MEDS ORDERED: ONDANSETRON HCL 4 MG/2 ML VIAL IV PRN (22:45)
[2025-03-06] MEDS ORDERED: MORPHINE SULFATE INJ 2 MG/ml SYRG IV PRN ×2 (22:45)
[2025-03-06] MEDS ORDERED: NITROGLYCERIN 0.4 MG SL TAB SL PRN (22:45)
[2025-03-06] MEDS ORDERED: ENOXAPARIN SOD 40 MG/0.4 ML SYRINGE SC SCH (22:45)
[2025-03-06] MEDS ORDERED: ACETAMINOPHEN 325 MG TAB PO PRN (22:45)
--- NOTE | 2025-03-06 23:08 | DVH ---
Left lower extremity venous duplex Clinical History: Lower extremity swelling, history of DVT, PE Comparison: None Technique: Duplex Doppler evaluation of the deep venous system of the left lower extremity from the common femor al vein to the popliteal vein including color Doppler and spectral/pulsed waveform analysis was perfo rmed. Findings: The common femoral vein demonstrates appropriate compressibility and waveform variability. There is compressibility/patency of the great saphenous vein at the proximal thigh. The femoral vein demonstrates appropriate compressibility and waveform variability. The deep femoral vein demonstrates appropriate compressibility and waveform variability. The popliteal vein demonstrates appropriate compressibility and waveform variability. There is normal compressibility at the tibioperoneal trunk. Impression: 1. No left femoropopliteal venous thrombosis. 2. Contralateral common femoral vein is patent.
[2025-03-07] VITALS (9 sets, daily range): BP systolic 124–134; BP diastolic 51–73; PULSE 69–81; RESP 15–20; TEMP 97.1–98.6; O2SAT 95–98
[2025-03-07] MEDS ORDERED: ACETAMINOPHEN 325 MG TAB PO PRN (00:30)
[2025-03-07] MEDS ORDERED: ONDANSETRON HCL 4 MG/2 ML VIAL IV PRN (00:30)
[2025-03-07] MEDS: ENOXAPARIN SOD 40 MG/0.4 ML SYRINGE SC SCH (00:36)
[2025-03-07] MEDS: PANTOPRAZOLE 40 MG TAB PO ONE ×2 (00:37→00:40)
[2025-03-07] MEDS: METOPROLOL SUCCINATE XL 50 MG TAB PO ONE ×2 (00:37→00:41)
[2025-03-07] MEDS: ATORVASTATIN 20 MG TAB PO ONE ×2 (00:37→00:40)
[2025-03-07] MEDS ORDERED: NITROGLYCERIN 0.4 MG SL TAB SL PRN (00:45)
[2025-03-07] MEDS ORDERED: MORPHINE SULFATE INJ 2 MG/ml SYRG IV PRN ×2 (00:45)
[2025-03-07 04:18] LABS: Chloride 106 mmol/L (98-107); Hematocrit 34.1 % (36.0-46.0); Hemoglobin 11.7 g/dL (12.2-16.2); Mean Corpuscular Hemoglobin 28.4 pg (28.0-32.0); Mean Corpuscular Volume 82.8 fL (80.0-100.0); Nucleated Red Blood Cells % 0.1 %; Potassium 4.2 mmol/L (3.5-5.1); Sodium 140 mmol/L (136-145)
[2025-03-07 04:19] LABS: Anion Gap 7 (5-15); Carbon Dioxide 27 mmol/L (20-31)
[2025-03-07 04:20] LABS: Calcium 9.5 mg/dL (8.7-10.4)
[2025-03-07 04:24] LABS: Glucose 79 mg/dL (74-106)
[2025-03-07 04:25] LABS: BUN/Creatinine Ratio 15.6 (10.0-20.0); Blood Urea Nitrogen 12 mg/dL (9-23)
--- NOTE | 2025-03-07 04:49 | DVH ---
CHEST RADIOGRAPH Indication: Chest pain Technique: Single frontal view of the chest was obtained COMPARISON: CHEST PORTABLE on DOS: 07/27/22, CXRP on DOS: 07/27/22, CXRP on DOS: 06/06/22, CXRP on DOS: 05/21/22, CHEST PORTABLE on DOS: 05/07/22 FINDINGS: Lines and Tubes: None Lungs: Clear Pleura: No effusion. No pneumothorax. Cardiomediastinal contours: Unremarkable Bones: Unremarkable IMPRESSION: 1. No acute disease.
[2025-03-07] MEDS ORDERED: LEVOTHYROXINE SODIUM 50 MCG TAB PO SCH (06:00)
[2025-03-07] MEDS ORDERED: PANTOPRAZOLE 40 MG TAB PO SCH (06:00)
[2025-03-07] MEDS: PANTOPRAZOLE 40 MG TAB PO SCH (06:34)
[2025-03-07] MEDS: LEVOTHYROXINE SODIUM 50 MCG TAB PO SCH (06:34)
[2025-03-07] MEDS ORDERED: SACUBITRIL-VALSARTAN 24mg/26mg TAB PO SCH (10:00)
[2025-03-07] MEDS ORDERED: METOPROLOL SUCCINATE XL 50 MG TAB PO SCH (10:00)
[2025-03-07] MEDS: SACUBITRIL-VALSARTAN 24mg/26mg TAB PO SCH (10:38)
[2025-03-07] MEDS: levETIRAcetam 500 MG TAB PO SCH (10:38)
[2025-03-07] MEDS: METOPROLOL SUCCINATE XL 50 MG TAB PO SCH (10:39)
--- NOTE | 2025-03-07 12:15 | DVHSR ---
APPROVED REPORT EXAM: Two-dimensional and M-mode echocardiogram with Doppler and color Doppler. Blood Pressure: 131/59 mmHg INDICATION Chest Pain RISK FACTORS Height: 50, Weight: 110 DIMENSIONS LVDd4.2 (3.8-5.7cm)LA (2D)3.6 (1.9-4.0cm)Aortic Root3.3 (2.0-3.7cm) LVDs3.0 (2.5-4.0cm)LA (MM) (1.9-4.0cm)Aortic Cusp Exc1.3 (1.5-2.0cm) EF (%) 53.0 (55-70%)Rt. Atrium3.8 (1.9-4.0cm)Asc. Aorta cm Mitral Valve MitralMitral Stenosis E wave0.72m/sMV Mean GR.mmHg A wave0.95m/sMV Peak GR.mmHg E/A ratio0.82D MVAcm2 DECEL [id number] 1/2 [id number] IVRTmsDop MVA3.08cm2 Aortic Valve Aortic ValveAortic Stenosis V10.72m/[place] Mean GR.2mmHg V21.09m/[place] Peak GR.5mmHg LVOT Diameter2.3 (1.8-2.4cm)Doppler AVA2.74cm2 Pulmonic Valve V20.84m/s Tricuspid Valve TR Velocity2.47m/s [id number] Conclusion lvef 50% mild left atrium enlarged normal rv function
--- NOTE | 2025-03-07 13:37 | DVHPNRES ---
Progress Note Date Seen: Mar 07, 2025 Resident Creating Document: DANIEL MENG RESIDENT Medical Necessity Reason Pt with a Central, PICC or Fol: No Subjective Review of Systems This is a 75-year-old female with past medical history of HFrEF with ejection fraction 40%, recurrent grand mal seizures on Keppra, DVT, PE, dyslipidemia, prediabetes, hypothyroidism, presented to the ER with chief complain of chest pain, headache, dyspnea and palpitations in functional class III. She is a poor historian. Patient endorsed taking 2 thyroxine pills yesterday, followed by chest pain, palpitation and tremors. She described chest pain as pressure-like, substernal, 4/10. She complained of associated palpitations and shortness of breaths. Shortness of breaths was prominent while doing yard work a month ago, now occurs with minimal effort. She also complained of headache, was not able to elaborate characteristic and onset time. Denies any other associated symptoms. PMHx: HFrEF with ejection fraction 40%, recurrent grand mal seizures on Keppra, DVT, PE, dyslipidemia, prediabetes, hypothyroidism PSHx: No significant surgical history Family history: Congestive heart failure in brother Social history: Denies smoking, alcohol, recreational drug use. Full code. Next of kin: clinical secretary sister Home medication: Atorvastatin, levetiracetam, levothyroxine, rivaroxaban, metoprolol, Entresto Allergic history: Seasonal allergies The patient was seen and examined at bedside. Overnight events were reviewed. Professional metaphysicist was used to obtain history. She reports having palpitations, chest tightness and shortness of breaths. She reports improvement in her tremors. Her chest tightness and shortness of breaths have been chronic, the chest tightness is nonradiating. The patient reports the shortness of breath is brought on by exertion, not associated with orthopnea, paroxysmal nocturnal dyspnea. She denies any abdominal pain, diarrhea or any other complaints Objective vital signs Vital Sign Date Time Temp Pulse Resp B/P (MAP) Pulse Ox O2 Delivery O2 Flow Rate FiO2 03/07/25 12:00 66 03/07/25 10:39 121/49 03/07/25 10:00 20 98 03/07/25 08:14 Room Air* 0 21 03/07/25 08:14 97.1 97.1 medications Current Medications Medications Dose Ordered Sig/Hiren Route Start Time Stop Time Status Last Admin Dose Admin Acetaminophen 325 mg Q4HP PRN PO 03/07/25 00:30 Enoxaparin Sodium 40 mg HS SC 03/07/25 00:30 03/07/25 00:36 40 MG Ondansetron HCl 4 mg Q4HP PRN IV 03/07/25 00:30 Morphine Sulfate 2 mg Q4HPRN PRN IV 03/07/25 00:45 Nitroglycerin 0.4 mg Q5MINP PRN SL 03/07/25 00:45 Morphine Sulfate 2 mg Q30M PRN IV 03/07/25 00:45 Aspirin 81 mg DAILY PO 03/07/25 10:00 03/07/25 10:38 81 MG Atorvastatin Calcium 40 mg HS PO 03/07/25 22:00 Levothyroxine Sodium 50 mcg QAM@0600 PO 03/07/25 06:00 03/07/25 06:34 50 MCG Metoprolol Succinate 25 mg DAILY PO 03/07/25 10:00 03/07/25 10:39 25 MG Sacubitril/ Valsartan 1 tab BID PO 03/07/25 10:00 03/07/25 10:38 1 TAB Pantoprazole Sodium 40 mg DAILY@0600 PO 03/07/25 06:00 03/07/25 06:34 40 MG Levetiracetam 500 mg BID PO 03/07/25 10:00 03/07/25 10:38 500 MG Examination Exam General: Patient alert and oriented in person, place and time. Patient following commands. HEENT: Normocephalic, atraumatic, moist mucous membranes Respiratory/pulmonary: Clear lungs bilaterally, vesicular murmurs present in almost all lung pavon, no associated crackles or wheezes. Cardiovascular: S1, S2, S4 heard. No murmurs heard Abdomen: Abdomen nondistended, there is no pain to palpation in any of the abdominal quadrants, no palpable masses. Extremities: Grade 1 peripheral pitting edema present Peripheral Pulses: 3+ Radial (R). 3+ Radial (L). 3+ Dorsalis pedis (R). 3+ Dorsalis pedis(L) Skin: No rashes or pruritus, there is no sacral edema present at this time. Neurological: Intact cranial nerves with no focal neurologic deficits laboratory and microbiology Laboratory Tests 03/07/25 03:49 Test 03/07/25 03:49 Range/Units Serum Glucose 79 74-106 mg/dL Problem List/Assessment/Plan Problem List/Assessment/Plan Chronic systolic heart failure without exacerbation HFrEF with LVEF 40% with diastolic dysfunction Trending troponin, EKG; elevated troponins, EKG shows no acute changes Echo done in 01/2024 shows LVEF 40% with diastolic dysfunction CXR, Echo ordered Monitored on telemetry On GDMT Entresto, metoprolol. Poor follow up with aircraft general repair mechanic, not taking spironolactone or Jardiance Continue aspirin, atorvastatin 40 mg Echocardiogram on 03/07/2025: Echo -lvef 50% mild left atrium enlarged normal rv function Suggest follow-up with Cardiology as outpatient. Hypothyroidism Levothyroxine increased dose TSH 3.95 Continue levothyroxine 50 mg daily Monitored signs symptoms and labs. Hyperlipidemia Continue atorvastatin Grand mal seizure, without breakthrough seizure Continue Keppra 500 mg b.i.d Continue Phenytoin Ruled out DVT Doppler lower extremity negative for DVT DIET: Cardiac DVT PROPHYLAXIS: Lovenox GI PROPHYLAXIS: Protonix CODE STATUS: Goals of care discussed with patient, nurses at bedside for more than 35 minutes. Full code DISPOSITION: Telemetry Case discussed with Dr. Smart. Plan discussed with: Patient, Other (RN,family) Date of Service: Mar 07, 2025 Billing Provider: THAI SMART MD Common Visit Codes: [id number] INP/OBS CARE(HIGH) Secondary Visit Codes: [id number] CARE PLAN 30 MINUTES DANIEL MENG RESIDENT Mar 07, 2025 13:37 TAHI SMART MD Mar 08, 2025 19:17
[2025-03-07] MEDS ORDERED: METO25TA5 PO (17:47)
[2025-03-07] MEDS: RIVAROXABAN 20 MG TAB PO SCH (17:47)
[2025-03-07] MEDS: ATORVASTATIN 20 MG TAB PO SCH (21:09)
[2025-03-07] MEDS: PHENYTOIN SODIUM 100 MG CAP PO SCH (21:10)
[2025-03-07] MEDS ORDERED: ATORVASTATIN 20 MG TAB PO SCH (22:00)
[2025-03-08] VITALS (9 sets, daily range): BP systolic 115–145; BP diastolic 60–76; PULSE 63–90; RESP 16–18; TEMP 97–98.5; O2SAT 97–99
[2025-03-08 07:21] LABS: Hematocrit 37.1 % (36.0-46.0); Hemoglobin 12.6 g/dL (12.2-16.2); Mean Corpuscular Hemoglobin 28.2 pg (28.0-32.0); Mean Corpuscular Volume 83.3 fL (80.0-100.0); Nucleated Red Blood Cells % 0.3 %
[2025-03-08 07:37] LABS: Anion Gap 10 (5-15); Carbon Dioxide 25 mmol/L (20-31); Chloride 105 mmol/L (98-107); Potassium 3.7 mmol/L (3.5-5.1); Sodium 140 mmol/L (136-145)
[2025-03-08 07:38] LABS: Calcium 9.5 mg/dL (8.7-10.4)
[2025-03-08 07:43] LABS: BUN/Creatinine Ratio 15.5 (10.0-20.0); Blood Urea Nitrogen 13 mg/dL (9-23); Glucose 90 mg/dL (74-106)
[2025-03-08] MEDS: FUROSEMIDE 20 MG TAB PO ONE (10:32)
[2025-03-08] MEDS: MAGNESIUM SULFATE 1GM/100ML 100 ML IV ONE (14:27)
--- NOTE | 2025-03-08 17:24 | DVHPN2 ---
Progress Note Date Seen: Mar 08, 2025 Resident Creating Document: RAHUL BEAR RESIDENT Medical Necessity Reason Pt with a Central, PICC or Fol: No Subjective Review of Systems DANIEL CASTANO is a 75-year-old female with past medical history of HFrEF with EF 40%, recurrent grand mal seizures on Keppra, DVT, PE, DLD, prediabetes, hypothyroidism, presented to the ER with chief complaints of chest pain and palpitations. She described chest pain as pressure-like, substernal, 4/10. She complained of associated palpitations and shortness of breaths. Shortness of breaths was prominent while doing yard work a month ago, now occurs with minimal effort. She also complained of headache, was not able to elaborate characteristic and onset time. Denies any other associated symptoms. Cardiology consulted regarding palpitations. Previous echocardiogram showed LVEF 40% with a diastolic dysfunction but new echocardiogram done on 03/07/2025 showed LVEF improved to 50% with a mild LA enlargement. BNP is 102.44, troponins were within normal limit and Left heart cath on 05/14/2022 negative PMH: HFrEF with EF 40%, recurrent grand mal seizures on Keppra, DVT, PE, DLD, prediabetes, hypothyroidism, PSH: No significant history Family hx: CHF in brother Social hx: Denies smoking, alcohol, recreational drug use. Full code. Next of kin: slack line yarder sister Home meds: Atorvastatin, levetiracetam, levothyroxine, rivaroxaban, metoprolol, Entresto Allergies: Seasonal allergies Objective vital signs Vital Sign Date Time Temp Pulse Resp B/P (MAP) Pulse Ox O2 Delivery O2 Flow Rate FiO2 03/08/25 17:10 97.1 67 18 130/69 (89) 98 97.1 03/08/25 08:25 Room Air* 0 21 Total Intake and Output 03/07/25 03/07/25 03/08/25 15:00 23:00 07:00 Intake Total 0 ml 300 ml Balance 0 ml 300 ml medications Current Medications Medications Dose Ordered Sig/Hiren Route Start Time Stop Time Status Last Admin Dose Admin Ondansetron HCl 4 mg Q4HP PRN IV 03/07/25 00:30 Nitroglycerin 0.4 mg Q5MINP PRN SL 03/07/25 00:45 Morphine Sulfate 2 mg Q30M PRN IV 03/07/25 00:45 Aspirin 81 mg DAILY PO 03/07/25 10:00 03/08/25 10:22 81 MG Atorvastatin Calcium 40 mg HS PO 03/07/25 22:00 03/07/25 21:09 40 MG Levothyroxine Sodium 50 mcg QAM@0600 PO 03/07/25 06:00 03/08/25 05:08 50 MCG Metoprolol Succinate 25 mg DAILY PO 03/07/25 10:00 03/08/25 10:21 25 MG Sacubitril/ Valsartan 1 tab BID PO 03/07/25 10:00 03/08/25 10:22 1 TAB Pantoprazole Sodium 40 mg DAILY@0600 PO 03/07/25 06:00 03/08/25 05:07 40 MG Levetiracetam 500 mg BID PO 03/07/25 10:00 03/08/25 10:21 500 MG Acetaminophen 650 mg Q4HP PRN PO 03/07/25 16:30 Phenytoin Sodium 100 mg Q12HR PO 03/07/25 22:00 03/08/25 10:22 100 MG Rivaroxaban 20 mg QPM PO 03/07/25 18:00 03/07/25 17:47 20 MG Examination Pt is lying on bed General Appearance: Alert, Oriented X3, Cooperative, Not in acute distress HEENT: Atraumatic, Mucous membranes moist/pink Respiratory: Clear to auscultation, Normal air movement, No added sounds Cardiovascular: Regular rate, Normal S1, Normal S2, No murmurs Abdominal: Active bowel sounds, Soft, no distention, no tenderness Extremities: No edema, Normal pulses, No tenderness/swelling Skin: No Significant rash, except past surgical scars Neuro: Normal speech, sensorimotor deficits none Psych/Mental Status: Mental status NL, Mood NL Nurse was there as composing room machinist apprentice during examination laboratory and microbiology Laboratory Tests 03/08/25 06:02 Test 03/08/25 06:02 Range/Units Serum Glucose 90 74-106 mg/dL Labs and/or images reviewed: Labs reviewed by me, Image(s) reviewed by me Problem List/Assessment/Plan Problem List/Assessment/Plan Palpitations likely stress-induced / caffeine induced Chronic systolic & diasolic CHF without exacerbation Hx of PE/DVT, on Xarelto at home Hypothyroidism TSH 3.95 Hyperlipidemia Grand mal seizure, without breakthrough seizure Plan/Recommendation We will continue the following plan/recommendations (Dr. Newton): Continue telemetry monitoring, no rhythm abnormalities detected. EKG showed NSR Continue aspirin, Lipitor Continue rivaroxaban Continue metoprolol XL 25 mg and Entresto GDMT as tolerated Chest pain protocol with the morphine and nitroglycerin Continue Dilantin for seizures Continue levothyroxine Lifestyle modifications Sleep hygiene Avoid caffeinated drinks and other triggers that induce palpitations Rest of the management as per primary team Case discussed with Dr. Newton Thank you for allowing us to care for this patient Plan discussed with: Patient My Orders My Orders Orders - RAHUL BEAR Procedure Category Date Status Time Drug Screen LAB 03/08/25 Logged 12:01 Electrocardigram EKG 03/08/25 Logged 12:01 RAHUL BEAR Mar 08, 2025 17:24
--- NOTE | 2025-03-08 17:43 | DVHCONRES ---
Date Seen: Mar 08, 2025 Resident Creating Document: RAHUL BEAR RESIDENT Referring Physician Sara Muhammad Reason for Consultation Palpitations History of Present Illness THURMANDANIEL MEJIA is a 75-year-old female with past medical history of HFrEF with EF 40%, recurrent grand mal seizures on Keppra, DVT, PE, DLD, prediabetes, hypothyroidism, presented to the ER with chief complaints of chest pain and palpitations. She described chest pain as pressure-like, substernal, 4/10. She complained of associated palpitations and shortness of breaths. Shortness of breaths was prominent while doing yard work a month ago, now occurs with minimal effort. She also complained of headache, was not able to elaborate characteristic and onset time. Denies any other associated symptoms. Cardiology consulted regarding palpitations. Previous echocardiogram showed LVEF 40% with a diastolic dysfunction but new echocardiogram done on 03/07/2025 showed LVEF improved to 50% with a mild LA enlargement. BNP is 102.44, troponins were within normal limit and Left heart cath on 05/14/2022 negative PMH: HFrEF with EF 40%, recurrent grand mal seizures on Keppra, DVT, PE, DLD, prediabetes, hypothyroidism, PSH: No significant history Family hx: CHF in brother Social hx: Denies smoking, alcohol, recreational drug use. Full code. Next of kin: manager philosophy sister Home meds: Atorvastatin, levetiracetam, levothyroxine, rivaroxaban, metoprolol, Entresto Allergies: Seasonal allergies Family History: Diabetes mellitus G8 MOTHER G8 SISTER Allergies: Coded Allergies: NO KNOWN ALLERGIES (Unverified , 07/19/13) Home Meds Active Scripts Levetiracetam (Keppra) 500 Mg Tab, 1 TAB PO BID, #180 TAB 3 Refills Prov:CLAY VILLAGOMEZ MD 07/30/22 Reported Medications Sacubitril-Valsartan (Entresto 24-26 mg) 1 Tab Tab, 1 TAB PO BID for 90 Days, #180 03/08/25 Alendronate Sodium (Alendronate Sodium) 70 Mg Tab, 1 TAB PO QWEEKLY for 84 Days, #12 03/08/25 Metoprolol Succinate (Metoprolol Succinate Er) 25 Mg Tab, 1 TAB PO DAILY for 90 Days, #90 03/08/25 Atorvastatin Calcium (ATORVASTATIN CALCIUM) 10 Mg Tab, 1 TAB PO HS, TAB 05/08/22 Phenytoin Sodium (DILANTIN CAPSULE) 100 Mg Cp, 100 MG PO BID for 30 Days 05/20/19 Rivaroxaban (XARELTO) 20 Mg Tab, 1 TAB PO QPM, #30 TAB 11 Refills 08/13/18 Levothyroxine Sodium (Levothyroxine Sodium) 50 Mcg Tab, 50 MCG PO QAM for 30 Days, MCG 08/07/17 Current Medications Current Medications Medications (Trade) Dose Ordered Sig/Hiren Route PRN Reason Start Time Stop Time Status Last Admin Atorvastatin Calcium (Lipitor) 40 mg HS PO 03/07/25 22:00 03/07/25 00:32 DC Atorvastatin Calcium (Lipitor) 40 mg HS PO 03/07/25 22:00 03/07/25 21:09 Phenytoin Sodium (Dilantin Capsule) 100 mg Q12HR PO 03/07/25 22:00 03/08/25 10:22 Rivaroxaban (Xarelto Tablet) 20 mg QPM PO 03/07/25 18:00 03/07/25 17:47 Vital Signs Vital Signs Date Time Temp Pulse Resp B/P (MAP) Pulse Ox O2 Delivery O2 Flow Rate FiO2 03/08/25 17:10 97.1 67 18 130/69 (89) 98 97.1 03/08/25 08:25 Room Air* 0 21 Physical Exam Pt is lying on bed General Appearance: Alert, Oriented X3, Cooperative, Not in acute distress HEENT: Atraumatic, Mucous membranes moist/pink Respiratory: Clear to auscultation, Normal air movement, No added sounds Cardiovascular: Regular rate, Normal S1, Normal S2, No murmurs Abdominal: Active bowel sounds, Soft, no distention, no tenderness Extremities: No edema, Normal pulses, No tenderness/swelling Skin: No Significant rash, except past surgical scars Neuro: Normal speech, sensorimotor deficits none Psych/Mental Status: Mental status NL, Mood NL Nurse was there as pcts during examination Labs/Diagnostic Data Labs Test 03/08/25 06:02 03/06/25 21:09 03/06/25 14:37 Range/Units White Blood Count 4.5 4.4-10.8 10^3/uL Red Blood Count 4.46 4.0-5.20 10^6/uL Hemoglobin 12.6 12.2-16.2 g/dL Hematocrit 37.1 36.0-46.0 % Mean Corpuscular Volume 83.3 80.0-100.0 fL Mean Corpuscular Hemoglobin 28.2 28.0-32.0 pg Mean Corpuscular Hemoglobin Concent 33.9 32.0-36.0 g/dL Red Cell Distribution Width 14.7 H 11.8-14.3 % Platelet Count 211 140-450 10^3/uL Mean Platelet Volume 8.1 6.9-10.8 fL Neutrophils (%) (Auto) 55.1 37.0-80.0 % Lymphocytes (%) (Auto) 33.9 10.0-50.0 % Monocytes (%) (Auto) 8.4 0.0-12.0 % Eosinophils (%) (Auto) 2.0 0.0-7.0 % Basophils (%) (Auto) 0.6 0.0-2.0 % Neutrophils # (Auto) 2.5 1.6-8.6 10 ^3/uL Lymphocytes # (Auto) 1.5 0.4-5.4 10 ^3/uL Monocytes # (Auto) 0.4 0-1.3 10 ^3/uL Eosinophils # (Auto) 0.1 0-0.8 10 ^3/uL Basophils # (Auto) 0 0-0.2 10 ^3/uL Nucleated Red Blood Cells 0.3 % Sodium Level 140 136-145 mmol/L Potassium Level 3.7 3.5-5.1 mmol/L Chloride Level 105 98-107 mmol/L Carbon Dioxide Level 25 20-31 mmol/L Anion Gap 10 5-15 Blood Urea Nitrogen 13 9-23 mg/dL Creatinine 0.84 0.550-1.02 mg/dL Glomerular Filtration Rate Calc 72 >90 mL/min BUN/Creatinine Ratio 15.5 10.0-20.0 Serum Glucose 90 74-106 mg/dL Calcium Level 9.5 8.7-10.4 mg/dL Phenytoin (Dilantin) Level 2.1 L 10-20 ug/mL Prothrombin Time 11.4 9.3-11.8 sec Prothrombin Time INR 1.08 0.9-1.15 Activated Partial Thromboplast Time 26.8 24.5-34.5 SEC Hemoglobin A1c 5.8 H <5.7 % A1C Phosphorus Level 3.8 2.4-5.1 mg/dL Magnesium Level 1.9 1.6-2.6 mg/dL Total Bilirubin 0.5 0.2-1.0 mg/dL Direct Bilirubin 0.1 <0.3 mg/dL Aspartate Amino Transferase (AST) 23 13-40 U/L Alanine Aminotransferase (ALT) 12 7-40 U/L Alkaline Phosphatase 74 46-116 U/L Troponin I High Sensitivity < 3 L </=34 ng/L C-Reactive Protein High Sensitivity 0.08 <1.0 mg/dL B-Type Natriuretic Peptide 102.44 0-100 pg/mL Total Protein 8.0 5.7-8.2 g/dL Albumin 4.6 3.2-4.8 g/dL Triglycerides Level 78 < 150 mg/dL Cholesterol Level 181 < 200 mg/dL LDL Cholesterol 95 < 100 mg/dL HDL Cholesterol 76 H 40-59 mg/dL Lipase 36 12-53 U/L Vitamin B12 Level 422 211-911 pg/mL Vitamin D 25-Hydroxy 31.0 30.0-100 ng/mL Thyroid Stimulating Hormone (TSH) 3.95 0.55-4.78 uIU/mL Assessment Problem List/Assessment/Plan Palpitations likely stress-induced / caffeine induced Chronic systolic & diasolic CHF without exacerbation Hx of PE/DVT, on Xarelto at home Hypothyroidism TSH 3.95 Hyperlipidemia Grand mal seizure, without breakthrough seizure Plan/Recommendation We will continue the following plan/recommendations (Dr. Newton): Continue telemetry monitoring, no rhythm abnormalities detected. EKG showed NSR Continue aspirin, Lipitor Continue rivaroxaban Continue metoprolol XL 25 mg and Entresto GDMT as tolerated Chest pain protocol with the morphine and nitroglycerin Continue Dilantin for seizures Continue levothyroxine Lifestyle modifications Sleep hygiene Avoid caffeinated drinks and other triggers that induce palpitations Rest of the management as per primary team Case discussed with Dr. Newton Thank you for allowing us to care for this patient Plan discussed with: Patient TUNG BEARMARIELA RESIDENT Mar 08, 2025 17:43
--- NOTE | 2025-03-08 19:18 | DVHPNRES ---
Progress Note Date Seen: Mar 08, 2025 Resident Creating Document: DANIEL MENG RESIDENT Medical Necessity Reason Pt with a Central, PICC or Fol: No Subjective Review of Systems Daniel Jack S a 75-year-old female with past medical history of HFrEF with ejection fraction 40%, recurrent grand mal seizures on Keppra, DVT, PE, dyslipidemia, prediabetes, hypothyroidism, presented to the ER with chief complain of chest pain, headache, dyspnea and palpitations in functional class III. She is a poor historian. Patient endorsed taking 2 thyroxine pills yesterday, followed by chest pain, palpitation and tremors. She described chest pain as pressure-like, substernal, 4/10. She complained of associated palpitations and shortness of breaths. Shortness of breaths was prominent while doing yard work a month ago, now occurs with minimal effort. She also complained of headache, was not able to elaborate characteristic and onset time. Denies any other associated symptoms. PMHx: HFrEF with ejection fraction 40%, recurrent grand mal seizures on Keppra, DVT, PE, dyslipidemia, prediabetes, hypothyroidism PSHx: No significant surgical history Family history: Congestive heart failure in brother Social history: Denies smoking, alcohol, recreational drug use. Full code. Next of kin: behavioral health case manager sister Home medication: Atorvastatin, levetiracetam, levothyroxine, rivaroxaban, metoprolol, Entresto Allergic history: Seasonal allergies The patient was seen and examined at bedside. Overnight events were reviewed. She reports having palpitations while going to the bathroom, she also reports having ringing sensation in her right ear. She feels palpitation if she stands up quickly. She denies any other complaints today. Objective vital signs Vital Sign Date Time Temp Pulse Resp B/P (MAP) Pulse Ox O2 Delivery O2 Flow Rate FiO2 03/08/25 17:10 97.1 67 18 130/69 (89) 98 97.1 03/08/25 08:25 Room Air* 0 21 Total Intake and Output 03/07/25 03/07/25 03/08/25 15:00 23:00 07:00 Intake Total 0 ml 300 ml Balance 0 ml 300 ml medications Current Medications Medications Dose Ordered Sig/Hiren Route Start Time Stop Time Status Last Admin Dose Admin Ondansetron HCl 4 mg Q4HP PRN IV 03/07/25 00:30 Nitroglycerin 0.4 mg Q5MINP PRN SL 03/07/25 00:45 Morphine Sulfate 2 mg Q30M PRN IV 03/07/25 00:45 Aspirin 81 mg DAILY PO 03/07/25 10:00 03/08/25 10:22 81 MG Atorvastatin Calcium 40 mg HS PO 03/07/25 22:00 03/07/25 21:09 40 MG Levothyroxine Sodium 50 mcg QAM@0600 PO 03/07/25 06:00 03/08/25 05:08 50 MCG Metoprolol Succinate 25 mg DAILY PO 03/07/25 10:00 03/08/25 10:21 25 MG Sacubitril/ Valsartan 1 tab BID PO 03/07/25 10:00 03/08/25 10:22 1 TAB Pantoprazole Sodium 40 mg DAILY@0600 PO 03/07/25 06:00 03/08/25 05:07 40 MG Levetiracetam 500 mg BID PO 03/07/25 10:00 03/08/25 10:21 500 MG Acetaminophen 650 mg Q4HP PRN PO 03/07/25 16:30 Phenytoin Sodium 100 mg Q12HR PO 03/07/25 22:00 03/08/25 10:22 100 MG Rivaroxaban 20 mg QPM PO 03/07/25 18:00 03/08/25 19:09 20 MG Examination Pt is lying on bed General Appearance: Alert, Oriented X3, Cooperative, Mild distress HEENT: Atraumatic, Mucous membranes moist/pink Respiratory: Clear to auscultation, Normal air movement, No added sounds Cardiovascular: Regular rate, Normal S1, Normal S2, No murmurs Abdominal/ : Active bowel sounds, Soft, no distention, no tenderness Extremities: No edema, Normal pulses, No tenderness/swelling Skin: No Significant rash, except past surgical scars Neuro: Normal speech, sensorimotor deficits none Psych/Mental Status: Mental status NL, Mood NL Nurse was there as spool cleaner hand during examination laboratory and microbiology Laboratory Tests 03/08/25 06:02 Test 03/08/25 06:02 Range/Units Serum Glucose 90 74-106 mg/dL Labs and/or images reviewed: Labs reviewed by me, Image(s) reviewed by me Problem List/Assessment/Plan Problem List/Assessment/Plan Chronic systolic heart failure without exacerbation HFrEF with LVEF 40% with diastolic dysfunction Trending troponin, EKG; elevated troponins, EKG shows no acute changes Echo done in 01/2024 shows LVEF 40% with diastolic dysfunction On GDMT Entresto, metoprolol. Poor follow up with liquid flavor compounder, not taking spironolactone or Jardiance Continue aspirin, atorvastatin 40 mg Monitored on telemetry: Telemetry showed no PVCs, no rhythm abnormalities. EKG shows normal sinus rhythm Echocardiogram on 03/07/2025: Echo -lvef 50% mild left atrium enlarged normal rv function Cardiology consultation appreciated:Maintain sleep hygiene, continue aspirin, Lipitor, rivaroxaban, levothyroxine. Avoid caffeine drinks and other triggers that induced palpitation. Hypothyroidism Levothyroxine increased dose TSH 3.95 Continue levothyroxine 50 mg daily Monitored signs symptoms and labs. Hyperlipidemia Continue atorvastatin Grand mal seizure, without breakthrough seizure Continue Keppra 500 mg b.i.d Continue Phenytoin Ruled out DVT Doppler lower extremity negative for DVT DIET: Cardiac DVT PROPHYLAXIS: Lovenox GI PROPHYLAXIS: Protonix CODE STATUS: Goals of care discussed with patient, nurses at bedside for more than 35 minutes. Full code DISPOSITION: Telemetry Case discussed with Dr. Smart. Dr. Bhavesh Dr. Jhajj Plan discussed with: Patient, Other (RN) My Orders My Orders Orders - DANIEL MENG RESIDENT Procedure Category Date Status Time * Cardiology Consult CONS 03/08/25 Transmitted 14:19 Date of Service: Mar 08, 2025 Billing Provider: THAI SMART MD Common Visit Codes: [id number] INP/OBS CARE(HIGH) DANIEL MENG Mar 08, 2025 19:18 THAI SMART MD Mar 14, 2025 20:09
--- NOTE | 2025-03-08 23:12 | DVHINCON2 ---
Date of service: Mar 08, 2025 Referring Physician Sara Muhammad Reason for Consultation Palpitations History of Present Illness This is a 75-year-old female with past medical history of HFrEF with EF 40%, recurrent grand mal seizures on Keppra, DVT, PE, DLD, prediabetes, hypothyroidism, presented to the ER with chief complaints of chest pain and palpitations. She described chest pain as pressure-like, substernal, 4/10. She complained of associated palpitations and shortness of breaths. Shortness of breaths was prominent while doing yard work a month ago, now occurs with minimal effort. She also complained of headache, was not able to elaborate characteristic and onset time. Denies any other associated symptoms. Cardiology consulted regarding palpitations. Previous echocardiogram showed LVEF 40% with a diastolic dysfunction but new echocardiogram done on 03/07/2025 showed LVEF improved to 50% with a mild LA enlargement. BNP is 102.44, troponins were within normal limit and Left heart cath on 05/14/2022 negative PMH: HFrEF with EF 40%, recurrent grand mal seizures on Keppra, DVT, PE, DLD, prediabetes, hypothyroidism, PSH: No significant history Family hx: CHF in brother Social hx: Denies smoking, alcohol, recreational drug use. Full code. Next of kin: mechanical cad drafter sister Home meds: Atorvastatin, levetiracetam, levothyroxine, rivaroxaban, metoprolol, Entresto Allergies: Seasonal allergies Family History: Diabetes mellitus G8 MOTHER G8 SISTER Allergies: Coded Allergies: NO KNOWN ALLERGIES (Unverified , 07/19/13) Home Meds Active Scripts Levetiracetam (Keppra) 500 Mg Tab, 1 TAB PO BID, #180 TAB 3 Refills Prov:CLAY VILLAGOMEZ MD 07/30/22 Reported Medications Sacubitril-Valsartan (Entresto 24-26 mg) 1 Tab Tab, 1 TAB PO BID for 90 Days, #180 03/08/25 Alendronate Sodium (Alendronate Sodium) 70 Mg Tab, 1 TAB PO QWEEKLY for 84 Days, #12 03/08/25 Metoprolol Succinate (Metoprolol Succinate Er) 25 Mg Tab, 1 TAB PO DAILY for 90 Days, #90 03/08/25 Atorvastatin Calcium (ATORVASTATIN CALCIUM) 10 Mg Tab, 1 TAB PO HS, TAB 05/08/22 Phenytoin Sodium (DILANTIN CAPSULE) 100 Mg Cp, 100 MG PO BID for 30 Days 05/20/19 Rivaroxaban (XARELTO) 20 Mg Tab, 1 TAB PO QPM, #30 TAB 11 Refills 08/13/18 Levothyroxine Sodium (Levothyroxine Sodium) 50 Mcg Tab, 50 MCG PO QAM for 30 Days, MCG 08/07/17 Review of Systems Constitutional: denies: chills, diaphoresis, fatigue, fever, malaise, sweats, weakness, others EENTM: denies: blurred vision, double vision, ear bleeding, ear discharge, ear drainage, ear pain, ear ringing, eye pain, eye redness, hearing loss, mouth pain, mouth swelling, nasal discharge, nose bleeding, nose congestion, nose pain, photophobia, tearing, throat pain, throat swelling, voice changes, others Respiratory: denies: cough, hemoptysis, orthopnea, SOB at rest, shortness of breath, SOB with excertion, stridor, wheezing, others Cardiovascular: reports: palpitations; denies: chest pain, dizzy spells, diaphoresis, Dyspnea on exertion, edema, irregular heart beat, left arm pain, lightheadedness, PND, syncope, others Gastrointestinal: denies: abdomen distended, abdominal pain, blood streaked bowels, constipated, diarrhea, dysphagia, difficulty swallowing, hematemesis, melena, nausea, poor appetite, poor fluid intake, rectal bleeding, rectal pain, vomiting, others Genitourinary: denies: abnormal vagina bleeding, burning, dyspareunia, dysuria, flank pain, frequency, hematuria, incontinence, pain, , vagina discharge, urgency, others Neurological: denies: dizziness, fainting, headache, left sided numbness, left sided weakness, numbness, paresthesia, pre-existing deficit, right sided numbness, right sided weakness, seizure, speech problems, tingling, tremors, weakness, others Musculoskeletal: denies: back pain, gout, joint pain, joint swelling, muscle pain, muscle stiffness, neck pain, others Integumetry: denies: bruises, change in color, change in hair/nails, dryness, laceration, lesions, lumps, rash, wounds, others Allergic/Immunocompromised: denies: Difficulty Healing, Frequent Infections, Hives, Itching, others Hematologic/Lymphatic: denies: anemia, blood clots, easy bleeding, easy bruising, swollen glands, others Endocrine: denies: excessive hunger, excessive sweating, excessive thirst, excessive urination, flushing, intolerance to cold, intolerance to heat, unexplained weight gain, unexplained weight loss, others Psychiatric: denies: anxiety, bipolar disorder, depression, hopeless, panic disorder, schizophrenia, sleepless, suicidal, others All Other Systems: Reviewed and Negative Vital Signs Vital Signs Date Time Temp Pulse Resp B/P (MAP) Pulse Ox O2 Delivery O2 Flow Rate FiO2 03/08/25 21:00 97.0 73 16 131/73 (92) 98 97.0 03/08/25 08:25 Room Air* 0 21 Physical Exam General Appearance: Alert, Oriented X3, Cooperative, Not in acute distress HEENT: Atraumatic, Mucous membranes moist/pink Respiratory: Clear to auscultation, Normal air movement, No added sounds Cardiovascular: Regular rate, Normal S1, Normal S2, No murmurs Abdominal: Active bowel sounds, Soft, no distention, no tenderness Extremities: No edema, Normal pulses, No tenderness/swelling Skin: No Significant rash, except past surgical scars Neuro: Normal speech, sensorimotor deficits none Psych/Mental Status: Mental status NL, Mood NL Nurse was there as clay grinder during examination Labs/Diagnostic Data Labs Test 03/08/25 06:02 03/06/25 21:09 03/06/25 14:37 Range/Units White Blood Count 4.5 4.4-10.8 10^3/uL Red Blood Count 4.46 4.0-5.20 10^6/uL Hemoglobin 12.6 12.2-16.2 g/dL Hematocrit 37.1 36.0-46.0 % Mean Corpuscular Volume 83.3 80.0-100.0 fL Mean Corpuscular Hemoglobin 28.2 28.0-32.0 pg Mean Corpuscular Hemoglobin Concent 33.9 32.0-36.0 g/dL Red Cell Distribution Width 14.7 H 11.8-14.3 % Platelet Count 211 140-450 10^3/uL Mean Platelet Volume 8.1 6.9-10.8 fL Neutrophils (%) (Auto) 55.1 37.0-80.0 % Lymphocytes (%) (Auto) 33.9 10.0-50.0 % Monocytes (%) (Auto) 8.4 0.0-12.0 % Eosinophils (%) (Auto) 2.0 0.0-7.0 % Basophils (%) (Auto) 0.6 0.0-2.0 % Neutrophils # (Auto) 2.5 1.6-8.6 10 ^3/uL Lymphocytes # (Auto) 1.5 0.4-5.4 10 ^3/uL Monocytes # (Auto) 0.4 0-1.3 10 ^3/uL Eosinophils # (Auto) 0.1 0-0.8 10 ^3/uL Basophils # (Auto) 0 0-0.2 10 ^3/uL Nucleated Red Blood Cells 0.3 % Sodium Level 140 136-145 mmol/L Potassium Level 3.7 3.5-5.1 mmol/L Chloride Level 105 98-107 mmol/L Carbon Dioxide Level 25 20-31 mmol/L Anion Gap 10 5-15 Blood Urea Nitrogen 13 9-23 mg/dL Creatinine 0.84 0.550-1.02 mg/dL Glomerular Filtration Rate Calc 72 >90 mL/min BUN/Creatinine Ratio 15.5 10.0-20.0 Serum Glucose 90 74-106 mg/dL Calcium Level 9.5 8.7-10.4 mg/dL Phenytoin (Dilantin) Level 2.1 L 10-20 ug/mL Prothrombin Time 11.4 9.3-11.8 sec Prothrombin Time INR 1.08 0.9-1.15 Activated Partial Thromboplast Time 26.8 24.5-34.5 SEC Hemoglobin A1c 5.8 H <5.7 % A1C Phosphorus Level 3.8 2.4-5.1 mg/dL Magnesium Level 1.9 1.6-2.6 mg/dL Total Bilirubin 0.5 0.2-1.0 mg/dL Direct Bilirubin 0.1 <0.3 mg/dL Aspartate Amino Transferase (AST) 23 13-40 U/L Alanine Aminotransferase (ALT) 12 7-40 U/L Alkaline Phosphatase 74 46-116 U/L Troponin I High Sensitivity < 3 L </=34 ng/L C-Reactive Protein High Sensitivity 0.08 <1.0 mg/dL B-Type Natriuretic Peptide 102.44 0-100 pg/mL Total Protein 8.0 5.7-8.2 g/dL Albumin 4.6 3.2-4.8 g/dL Triglycerides Level 78 < 150 mg/dL Cholesterol Level 181 < 200 mg/dL LDL Cholesterol 95 < 100 mg/dL HDL Cholesterol 76 H 40-59 mg/dL Lipase 36 12-53 U/L Vitamin B12 Level 422 211-911 pg/mL Vitamin D 25-Hydroxy 31.0 30.0-100 ng/mL Thyroid Stimulating Hormone (TSH) 3.95 0.55-4.78 uIU/mL Assessment Palpitations likely stress-induced / caffeine induced. Chronic systolic & diasolic CHF without exacerbation. Hx of PE/DVT, on Xarelto at home. Hypothyroidism TSH 3.95. Hyperlipidemia. Grand mal seizure, without breakthrough seizure. Plan/Recommendation I agree with your ongoing assessment and care of plan. Patient has been seen by Jennifer Lundy, Resident on my behalf. We have discussed the plan with the patient. Continue telemetry monitoring, no rhythm abnormalities detected. Continue aspirin, Lipitor. Continue rivaroxaban. Continue metoprolol XL 25 mg and Entresto. GDMT as tolerated. Chest pain protocol with the morphine and nitroglycerin. Continue Dilantin for seizures. Continue levothyroxine. Lifestyle modifications. Sleep hygiene. Avoid caffeinated drinks and other triggers that induce palpitations. Rest of the management as per primary team. Additional plan as per the hospital course. Plan discussed with: Patient BRENNAN WILBURN MD Mar 08, 2025 23:12
--- NOTE | 2025-03-08 23:15 | DVHPN2 ---
Progress Note - Dictate Date Seen: Mar 08, 2025 Medical Necessity Reason Pt with a Central, PICC or Fol: No Subjective This is a 75-year-old female with past medical history of HFrEF with EF 40%, recurrent grand mal seizures on Keppra, DVT, PE, DLD, prediabetes, hypothyroidism, presented to the ER with chief complaints of chest pain and palpitations. She described chest pain as pressure-like, substernal, 4/10. She complained of associated palpitations and shortness of breaths. Shortness of breaths was prominent while doing yard work a month ago, now occurs with minimal effort. She also complained of headache, was not able to elaborate characteristic and onset time. Denies any other associated symptoms. Cardiology consulted regarding palpitations. Previous echocardiogram showed LVEF 40% with a diastolic dysfunction but new echocardiogram done on 03/07/2025 showed LVEF improved to 50% with a mild LA enlargement. BNP is 102.44, troponins were within normal limit and Left heart cath on 05/14/2022 negative PMH: HFrEF with EF 40%, recurrent grand mal seizures on Keppra, DVT, PE, DLD, prediabetes, hypothyroidism, PSH: No significant history Family hx: CHF in brother Social hx: Denies smoking, alcohol, recreational drug use. Full code. Next of kin: handkerchief maker sister Home meds: Atorvastatin, levetiracetam, levothyroxine, rivaroxaban, metoprolol, Entresto Allergies: Seasonal allergies vital signs Vital Sign Date Time Temp Pulse Resp B/P (MAP) Pulse Ox O2 Delivery O2 Flow Rate FiO2 03/08/25 21:00 97.0 73 16 131/73 (92) 98 97.0 03/08/25 08:25 Room Air* 0 21 Total Intake and Output 03/07/25 03/07/25 03/08/25 15:00 23:00 07:00 Intake Total 0 ml 300 ml Balance 0 ml 300 ml medications Current Medications Medications Dose Ordered Sig/Hiren Route Start Time Stop Time Status Last Admin Dose Admin Ondansetron HCl 4 mg Q4HP PRN IV 03/07/25 00:30 Nitroglycerin 0.4 mg Q5MINP PRN SL 03/07/25 00:45 Morphine Sulfate 2 mg Q30M PRN IV 03/07/25 00:45 Aspirin 81 mg DAILY PO 03/07/25 10:00 03/08/25 10:22 Atorvastatin Calcium 40 mg HS PO 03/07/25 22:00 03/08/25 21:43 Levothyroxine Sodium 50 mcg QAM@0600 PO 03/07/25 06:00 03/08/25 05:08 Metoprolol Succinate 25 mg DAILY PO 03/07/25 10:00 03/08/25 10:21 Sacubitril/ Valsartan 1 tab BID PO 03/07/25 10:00 03/08/25 21:42 Pantoprazole Sodium 40 mg DAILY@0600 PO 03/07/25 06:00 03/08/25 05:07 Levetiracetam 500 mg BID PO 03/07/25 10:00 03/08/25 21:43 Acetaminophen 650 mg Q4HP PRN PO 03/07/25 16:30 Phenytoin Sodium 100 mg Q12HR PO 03/07/25 22:00 03/08/25 21:42 Rivaroxaban 20 mg QPM PO 03/07/25 18:00 03/08/25 19:09 objective General Appearance: Alert, Oriented X3, Cooperative, Not in acute distress HEENT: Atraumatic, Mucous membranes moist/pink Respiratory: Clear to auscultation, Normal air movement, No added sounds Cardiovascular: Regular rate, Normal S1, Normal S2, No murmurs Abdominal: Active bowel sounds, Soft, no distention, no tenderness Extremities: No edema, Normal pulses, No tenderness/swelling Skin: No Significant rash, except past surgical scars Neuro: Normal speech, sensorimotor deficits none Psych/Mental Status: Mental status NL, Mood NL Nurse was there as proofer prepress during examination laboratory and microbiology Laboratory Tests 03/08/25 06:02 Test 03/08/25 06:02 Range/Units Serum Glucose 90 74-106 mg/dL Problem List Palpitations likely stress-induced / caffeine induced. Chronic systolic & diasolic CHF without exacerbation. History of PE/DVT, on Xarelto at home. Hypothyroidism. Hyperlipidemia. Grand mal seizure, without breakthrough seizure. Assessment/Plan Continued all current supportive medical care. Patient has been seen by Jennifer Lundy, Resident on my behalf. We have discussed the plan with the patient. Continue telemetry monitoring, no rhythm abnormalities detected. Continue aspirin, Lipitor. Continue rivaroxaban. Continue metoprolol XL 25 mg and Entresto. GDMT as tolerated. Chest pain protocol with the morphine and nitroglycerin. Continue Dilantin for seizures. Continue levothyroxine. Lifestyle modifications. Sleep hygiene. Avoid caffeinated drinks and other triggers that induce palpitations. Rest of the management as per primary team. Additional plan as per the hospital course. Plan discussed with: Patient BRENNAN WILBURN MD Mar 08, 2025 23:15
[2025-03-09 00:55] VITALS: BP 112/67; PULSE 67; RESP 16; TEMP 96.9; O2SAT 98
[2025-03-09 01:51] LABS: Amphetamine Screen, Urine Neg (NEGATIVE); Barbiturate Scree,Urine Neg (NEGATIVE); Benzodiazephine Screen, Urine Neg (NEGATIVE); Cannabinoid Screen, Urine Neg (NEGATIVE); Cocaine Screen, Urine Neg (NEGATIVE); Opiate Scree,Urine Neg (NEGATIVE); Phencyclidine Screen, Urine Neg (NEGATIVE)
[2025-03-09 05:00] VITALS: BP 90/40; PULSE 70; RESP 16; TEMP 96.8; O2SAT 94
[2025-03-09] MEDS: ACETAMINOPHEN 325 MG TAB PO PRN (05:52)
[2025-03-09 07:45] LABS: Hematocrit 37.2 % (36.0-46.0); Hemoglobin 12.5 g/dL (12.2-16.2); Mean Corpuscular Hemoglobin 27.9 pg (28.0-32.0); Mean Corpuscular Volume 82.9 fL (80.0-100.0); Nucleated Red Blood Cells % 0.1 %
[2025-03-09 07:51] LABS: Calcium 9.8 mg/dL (8.7-10.4); Chloride 100 mmol/L (98-107); Potassium 4.5 mmol/L (3.5-5.1); Sodium 140 mmol/L (136-145)
[2025-03-09 07:52] LABS: Anion Gap 9 (5-15)
[2025-03-09 07:54] LABS: Carbon Dioxide 31 mmol/L (20-31)
[2025-03-09 07:57] LABS: BUN/Creatinine Ratio 22.7 (10.0-20.0); Blood Urea Nitrogen 20 mg/dL (9-23); Glucose 93 mg/dL (74-106)
[2025-03-09 08:00] VITALS: PULSE 82; PULSE 83; RESP 18; O2SAT 97
[2025-03-09 09:05] VITALS: BP 127/68; PULSE 83; RESP 18; TEMP 97; O2SAT 97
--- NOTE | 2025-03-09 09:08 | ECG ---
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
--- NOTE | 2025-03-09 11:51 | DVHDSRES ---
Discharge Summary Date of Admission Resident Creating Document: DANIEL MENG RESIDENT Mar 06, 2025 at 22:32 Date of Discharge: Mar 09, 2025 Admitting Diagnosis Chronic systolic heart failure without exacerbation HFrEF with LVEF 40% with diastolic dysfunction Hypothyroidism Levothyroxine increased dose Hyperlipidemia Grand mal seizure, without breakthrough seizure Ruled out DVT Labs/Diagnostic Data: Laboratory Results Test 03/09/25 06:10 03/09/25 00:30 03/08/25 06:02 03/06/25 21:09 White Blood Count 5.1 10^3/uL (4.4-10.8) Red Blood Count 4.48 10^6/uL (4.0-5.20) Hemoglobin 12.5 g/dL (12.2-16.2) Hematocrit 37.2 % (36.0-46.0) Mean Corpuscular Volume 82.9 fL (80.0-100.0) Mean Corpuscular Hemoglobin 27.9 pg (28.0-32.0) Mean Corpuscular Hemoglobin Concent 33.6 g/dL (32.0-36.0) Red Cell Distribution Width 15.1 % (11.8-14.3) Platelet Count 228 10^3/uL (140-450) Mean Platelet Volume 8.1 fL (6.9-10.8) Neutrophils (%) (Auto) 58.8 % (37.0-80.0) Lymphocytes (%) (Auto) 30.1 % (10.0-50.0) Monocytes (%) (Auto) 8.9 % (0.0-12.0) Eosinophils (%) (Auto) 1.7 % (0.0-7.0) Basophils (%) (Auto) 0.5 % (0.0-2.0) Neutrophils # (Auto) 3.0 10 ^3/uL (1.6-8.6) Lymphocytes # (Auto) 1.5 10 ^3/uL (0.4-5.4) Monocytes # (Auto) 0.5 10 ^3/uL (0-1.3) Eosinophils # (Auto) 0.1 10 ^3/uL (0-0.8) Basophils # (Auto) 0 10 ^3/uL (0-0.2) Nucleated Red Blood Cells 0.1 % Sodium Level 140 mmol/L (136-145) Potassium Level 4.5 mmol/L (3.5-5.1) Chloride Level 100 mmol/L (98-107) Carbon Dioxide Level 31 mmol/L (20-31) Anion Gap 9 (5-15) Blood Urea Nitrogen 20 mg/dL (9-23) Creatinine 0.88 mg/dL (0.550-1.02) Glomerular Filtration Rate Calc 68 mL/min (>90) BUN/Creatinine Ratio 22.7 (10.0-20.0) Serum Glucose 93 mg/dL (74-106) Calcium Level 9.8 mg/dL (8.7-10.4) Urine Opiates Screen Neg (NEGATIVE) Urine Fentanyl Screen Neg (NEGATIVE) Urine Barbiturates Screen Neg (NEGATIVE) Urine Phencyclidine Screen Neg (NEGATIVE) Urine Amphetamines Screen Neg (NEGATIVE) Urine Benzodiazepines Screen Neg (NEGATIVE) Urine Cocaine Screen Neg (NEGATIVE) Urine Cannabinoids Screen Neg (NEGATIVE) Phenytoin (Dilantin) Level 2.1 ug/mL (10-20) Prothrombin Time 11.4 sec (9.3-11.8) Prothrombin Time INR 1.08 (0.9-1.15) Activated Partial Thromboplast Time 26.8 SEC (24.5-34.5) Test 03/06/25 14:37 Hemoglobin A1c 5.8 % A1C (<5.7) Phosphorus Level 3.8 mg/dL (2.4-5.1) Magnesium Level 1.9 mg/dL (1.6-2.6) Total Bilirubin 0.5 mg/dL (0.2-1.0) Direct Bilirubin 0.1 mg/dL (<0.3) Aspartate Amino Transferase (AST) 23 U/L (13-40) Alanine Aminotransferase (ALT) 12 U/L (7-40) Alkaline Phosphatase 74 U/L (46-116) Troponin I High Sensitivity < 3 ng/L (</=34) C-Reactive Protein High Sensitivity 0.08 mg/dL (<1.0) B-Type Natriuretic Peptide 102.44 pg/mL (0-100) Total Protein 8.0 g/dL (5.7-8.2) Albumin 4.6 g/dL (3.2-4.8) Triglycerides Level 78 mg/dL (< 150) Cholesterol Level 181 mg/dL (< 200) LDL Cholesterol 95 mg/dL (< 100) HDL Cholesterol 76 mg/dL (40-59) Lipase 36 U/L (12-53) Vitamin B12 Level 422 pg/mL (211-911) Vitamin D 25-Hydroxy 31.0 ng/mL (30.0-100) Thyroid Stimulating Hormone (TSH) 3.95 uIU/mL (0.55-4.78) Other Laboratory Tests 03/09/25 06:10 Brief Hx & Hospital Course: Daniel Jack a 75-year-old female with past medical history of HFrEF with ejection fraction 40%, recurrent grand mal seizures on Keppra, DVT, PE, dyslipidemia, prediabetes, hypothyroidism, presented to the ER with chief complain of chest pain, headache, dyspnea and palpitations in functional class III. She is a poor historian. Patient endorsed taking 2 thyroxine pills yesterday, followed by chest pain, palpitation and tremors. She described chest pain as pressure-like, substernal, 4/10. She complained of associated palpitations and shortness of breaths. Shortness of breaths was prominent while doing yard work a month ago, now occurs with minimal effort. She also complained of headache, was not able to elaborate characteristic and onset time. Denies any other associated symptoms. PMHx: HFrEF with ejection fraction 40%, recurrent grand mal seizures on Keppra, DVT, PE, dyslipidemia, prediabetes, hypothyroidism PSHx: No significant surgical history Family history: Congestive heart failure in brother Social history: Denies smoking, alcohol, recreational drug use. Full code. Next of kin: health equipment servicer sister Home medication: Atorvastatin, levetiracetam, levothyroxine, rivaroxaban, metoprolol, Entresto Allergic history: Seasonal allergies Her thyroid function was monitored, TSH was normal. Her vitals and signs symptoms are monitored closely following the levothyroxine ingestion. ACS was ruled out by serial troponins and EKG. A code done during the admission revealed LV ejection fraction 50%, mild left atrium enlarged, no other abnormalities detected. She was maintained on GDMT Entresto and metoprolol. 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 Inpatient Cardiology was consulted due to her continued palpitations, telemetry was reviewed, which reveals no PVC or no abnormal rhythms. they recommended lifestyle changes, avoid caffeine intake and continue current management. Hyperlipidemia was managed with atorvastatin. DVT was ruled out by lower extremity ultrasound. Her seizure disorder was controlled with Keppra and phenytoin. On the day of discharge, patient was hemodynamically stable, verbalized understanding of discharge and treatment plan. Patient agreed to follow up with her PCP Dr. Salcido. She was counseled about medication compliance as well. Examination Pt is lying on bed General Appearance: Alert, Oriented X3, Cooperative, Mild distress HEENT: Atraumatic, Mucous membranes moist/pink Respiratory: Clear to auscultation, Normal air movement, No added sounds Cardiovascular: Regular rate, Normal S1, Normal S2, No murmurs Abdominal/ : Active bowel sounds, Soft, no distention, no tenderness Extremities: No edema, Normal pulses, No tenderness/swelling Skin: No Significant rash, except past surgical scars Neuro: Normal speech, sensorimotor deficits none Psych/Mental Status: Mental status NL, Mood NL Nurse was there as plate mounter during examination Case discussed with Dr. [place], Dr. Ospina, Dr. Figueroa Operations or Procedures ORDERING PHYSICIAN: ANJUM ORTIZ RESIDENT PROCEDURE(s): ECIDC - ECHO 2D MODE CARDIAC DOP REASON: Chest pain ORDER NUMBER(s): [id number], ACCESSION NUMBER(s): [id number] APPROVED REPORT EXAM: Two-dimensional and M-mode echocardiogram with Doppler and color Doppler. Blood Pressure: 131/59 mmHg INDICATION Chest Pain RISK FACTORS Height: 50, Weight: 110 DIMENSIONS LVDd 4.2 (3.8-5.7cm) LA (2D) 3.6 (1.9-4.0cm) Aortic Root 3.3 (2.0- 3.7cm) LVDs 3.0 (2.5-4.0cm) LA (MM) (1.9-4.0cm) Aortic Cusp Exc 1.3 (1.5- 2.0cm) EF (%) 53.0 (55-70%) Rt. Atrium 3.8 (1.9-4.0cm) Asc. Aorta cm Mitral Valve Mitral Mitral Stenosis E wave 0.72m/s MV Mean GR. mmHg A wave 0.95m/s MV Peak GR. mmHg E/A ratio 0.8 2D MVA cm2 DECEL Time 219ms PRESS 1/2 Time 71ms IVRT ms Dop MVA 3.08cm2 Aortic Valve Aortic Valve Aortic Stenosis V1 0.72m/s AO Mean GR. 2mmHg V2 1.09m/s AO Peak GR. 5mmHg LVOT Diameter 2.3 (1.8-2.4cm) Doppler ALEJANDRO 2.74cm2 Pulmonic Valve V2 0.84m/s Tricuspid Valve TR Velocity 2.47m/s RVSP 29mmHg Conclusion lvef 50% mild left atrium enlarged normal rv function PATIENT: DANIEL CASTANO ACCT: [id number] UNIT: [id number] : 1950 LOC: OVERFLOW ROOM / BED: 1012-RUST / A AGE / SEX: 75 / F ADM STATUS: ADM IN SERVICE ORDERING PHYSICIAN: MARILEE WANG PROCEDURE(s): CXR1 - CHEST XRAY 1 VIEW REASON: Chest pain ORDER NUMBER(s): [id number], ACCESSION NUMBER(s): [id number] CHEST RADIOGRAPH Indication: Chest pain Technique: Single frontal view of the chest was obtained COMPARISON: CHEST PORTABLE on DOS: 07/27/22, CXRP on DOS: 07/27/22, CXRP on DOS: 06/06/22, CXRP on DOS: 05/21/22, CHEST PORTABLE on DOS: 05/07/22 FINDINGS: Lines and Tubes: None Lungs: Clear Pleura: No effusion. No pneumothorax. Cardiomediastinal contours: Unremarkable Bones: Unremarkable IMPRESSION: 1. No acute disease. [place] [address] Ph: [phone] DIAGNOSTIC IMAGING Diagnostic Imaging Report : [id number] Signed PATIENT: DANIEL CASTANO ACCT: [id number] UNIT: [id number] : 1950 LOC: ER ROOM / BED: / AGE / SEX: 75 / F ADM STATUS: DEP ER SERVICE 31 ORDERING PHYSICIAN: ANJUM ORTIZ PROCEDURE(s): LLDVT - LT Lower DVT REASON: Lower extremity swelling, history of DVT, PE ORDER NUMBER(s): [id number], ACCESSION NUMBER(s): [id number] Left lower extremity venous duplex Clinical History: Lower extremity swelling, history of DVT, PE Comparison: None Technique: Duplex Doppler evaluation of the deep venous system of the left lower extremity from the common femoral vein to the popliteal vein including color Doppler and spectral/pulsed waveform analysis was performed. Findings: The common femoral vein demonstrates appropriate compressibility and waveform variability. There is compressibility/patency of the great saphenous vein at the proximal thigh. The femoral vein demonstrates appropriate compressibility and waveform variability. The deep femoral vein demonstrates appropriate compressibility and waveform variability. The popliteal vein demonstrates appropriate compressibility and waveform variability. There is normal compressibility at the tibioperoneal trunk. Impression: 1. No left femoropopliteal venous thrombosis. 2. Contralateral common femoral vein is patent. Condition at Discharge: Stable Final Diagnosis/Problems List Chronic systolic heart failure without exacerbation HFrEF with LVEF 40% with diastolic dysfunction Hypothyroidism Levothyroxine increased dose Hyperlipidemia Grand mal seizure, without breakthrough seizure Ruled out DVT Discharge Disposition: Home Discharge Instruct/Medications Diet: Consistent carbohydrate Activity: No Restrictions, As Tolerated Follow Up/Referral: Follow up in [facility] clinic and PCP in 2 weeks Medications: As per prescriptions sent to pharmacy Scheduled Alendronate Sodium (Alendronate Sodium), 1 TAB PO QWEEKLY, (Reported) Atorvastatin Calcium (Atorvastatin Calcium), 1 TAB PO HS, (Reported) Levetiracetam (Keppra), 1 TAB PO BID Levothyroxine Sodium (Levothyroxine Sodium), 50 MCG PO QAM Metoprolol Succinate (Metoprolol Succinate Er), 1 TAB PO DAILY Phenytoin Sodium (Dilantin Capsule), 100 MG PO BID Rivaroxaban (Xarelto), 1 TAB PO QPM Sacubitril-Valsartan (Entresto 24-26 mg), 1 TAB PO BID Discharge Statement: "Patient was advised to return to the ER or call 911 if any headaches, dizziness, shortness of breath, chest pain, abdominal pain, bleeding, fevers, or worsening of medical condition. Patient was counseled about treatment plan, medications, possible side effects, patientverbalized understanding. All questions were answered to the best of my ability. This discharge took greater then 30 minutes in planning, reviewing documentation, counseling the patient, and discussing with other team members." ASSESSMENT ASSESSMENT Assessment CHf not on exacerbation hypothyroidisn Date of Service: Mar 09, 2025 Billing Provider: THAI COLORADO MD Common Visit Codes: 74815-MXJ/OBS DISCH DAY >30min YUSRA,DANIEL RESIDENT Mar 09, 2025 11:51 THAI COLORADO MD Mar 14, 2025 20:10
[2025-03-09 13:01] VITALS: BP 127/68; PULSE 83; RESP 18; TEMP 97.9; O2SAT 100
[2025-03-09] MEDS ORDERED: METO25TA93 PO (13:37)
[2025-03-09] MEDS ORDERED: SACU1TAB PO (13:37)
[2025-03-09] MEDS ORDERED: RIVA20TA PO (13:37)
[2025-03-09] MEDS ORDERED: LEVE500T40 PO (13:37)
[2025-03-09] MEDS ORDERED: PHEN1CAP38 PO (13:37)
[2025-03-09] MEDS ORDERED: LEVO50TA7 PO (13:37)
--- NOTE | 2025-03-09 23:36 | DVHPN2 ---
Progress Note - Dictate Date Seen: Mar 09, 2025 Medical Necessity Reason Pt with a Central, PICC or Fol: No Subjective Patient was seen and evaluated in follow-up. Patient has no new complaints at this time. Patient denies any cardiac symptoms. Patient is cardiac stable for discharge. Telemetry reviewed. vital signs Vital Sign Date Time Temp Pulse Resp B/P (MAP) Pulse Ox O2 Delivery O2 Flow Rate FiO2 03/09/25 13:01 97.9 83 18 100 03/09/25 09:37 127/68 03/09/25 08:00 Room Air* 0 21 Total Intake and Output 03/08/25 03/08/25 03/09/25 15:00 23:00 07:00 Intake Total 950 ml 300 ml Output Total 3 ml Balance 950 ml 297 ml objective General Appearance: Alert, Oriented X3, Cooperative, Not in acute distress HEENT: Atraumatic, Mucous membranes moist/pink Respiratory: Clear to auscultation, Normal air movement, No added sounds Cardiovascular: Regular rate, Normal S1, Normal S2, No murmurs Abdominal: Active bowel sounds, Soft, no distention, no tenderness Extremities: No edema, Normal pulses, No tenderness/swelling Skin: No Significant rash, except past surgical scars Neuro: Normal speech, sensorimotor deficits none Psych/Mental Status: Mental status NL, Mood NL Nurse was there as secondary history teacher during examination laboratory and microbiology Laboratory Tests 03/09/25 06:10 Test 03/09/25 06:10 Range/Units Serum Glucose 93 74-106 mg/dL Problem List Palpitations likely stress-induced / caffeine induced. Chronic systolic & diasolic CHF without exacerbation. History of PE/DVT, on Xarelto at home. Hypothyroidism. Hyperlipidemia. Grand mal seizure, without breakthrough seizure. Assessment/Plan Continued all current supportive medical care. Entresto. Aspirin, Metoprolol. GI prophylactics. Nitro SL. Additional plan as per the hospital course. Plan discussed with: Patient BRENNAN WILBURN MD Mar 09, 2025 17:16
== END 2025-03-09 14:50 | disposition home or self-care (01) | DRG 206 ==
LOC: ER 14:12 → OVERFLOW 22:32 → ER 22:54 → TELE-WESTW 03-07 16:01
PROVIDERS: ADMIT Internal Medicine Geriatric Medicine; ATTEND Internal Medicine Geriatric Medicine
DX: M94.0 Chondrocostal junction syndrome [Tietze] (principal); I50.22 Chronic systolic (congestive) heart failure; I11.0 Hypertensive heart disease with heart failure; E03.9 Hypothyroidism, unspecified; E78.5 Hyperlipidemia, unspecified; G40.409 Other generalized epilepsy and epileptic syndromes, not intractable, without status epilepticus; I16.0 Hypertensive urgency; Z79.01 Long term (current) use of anticoagulants; Z79.899 Other long term (current) drug therapy; Z83.3 Family history of diabetes mellitus; Z86.718 Personal history of other venous thrombosis and embolism; Z86.711 Personal history of pulmonary embolism; Z82.49 Family history of ischemic heart disease and other diseases of the circulatory system
CPT/HCPCS: 36415; 71045; 80048; 80061; 80076; 80185; 80307; 82306; 82607; 83036; 83690; 83735; 83880; 84100; 84443; 84484; 85025; 85610; 85730; 86141; 93005; 93306; 93971; G0378